=== PATIENT | male | born 1985 | race Caucasian/White ===

== ENCOUNTER 2016-11-20 12:33 | Inpatient (IN) ==
--- NOTE | 2016-11-20 12:41 | Emergency Department Note ---
Disposition Clinical Impression: Anxiety, Suicidal ideation, Marijuana abuse, Hypokalemia, Vomiting Disposition: Admitted As Inpatient Referrals: NO,PCP [Primary Care Provider] - Forms: Work/School Release, ED Satisfaction Letter General Adult HPI - General Chief complaint: ED General Medical Stated complaint: "I dont feel well" Time Seen by Provider: 11/20/16 12:40 Source: patient Limitations: no limitations - History of Present Illness HPI Narrative: 31-year-old male reports to the emergency department, he was brought in by family members from home. Their concerns for potential suicidal ideation. The patient reports someone took his medication away and he is very upset about this. He has a psychiatric history. Apparently there is been significant anxiety and the patient reports he has been vomiting recurrently. There is no history of chest pain shortness of breath or bloody or black material in the emesis. There is no history of headache next of this rash or fever no cough or runny nose or pain or sore throat no troubles walking talking hearing seeing or speaking. There is no history of acute trauma. No convulsions. There is no history of drug overdose or self injurious behavior. He patient states he takes Remeron and Klonopin and Zoloft. He states that he has not had these medications for several days. The patient reports he is also very upset about people accusing him of using heroin. There is no history of somnolence or unarousability. Pain Scale: 0 - Related Data Home Medications Medication Instructions Recorded Confirmed ClonazePAM [Klonopin] 1.5 mg PO BID 11/18/16 11/18/16 Dextroamphetamine/Amphetamine 5 mg PO BID 11/18/16 11/18/16 [Adderall 10 mg Tablet] Mirtazapine [Remeron] 15 mg PO HS 11/18/16 11/18/16 Sertraline [Zoloft] 150 mg PO DAILY 11/18/16 11/18/16 Zolpidem [Ambien] 5 - 10 mg PO HS 11/18/16 11/18/16 Allergies Allergy/AdvReac Type Severity Reaction Status Date / Time No Known Allergies Allergy Verified 11/18/16 19:58 All systems ED: reviewed and negative except as stated. Past Medical History - Past Medical History Medical history: Reports: no medical history Psychiatric history: Reports: anxiety, depression - Social History Smoking Status: Current every day smoker Smokeless Tobacco Status: No Alcohol use: Reports: rarely Drug use: Reports: marijuana, prescription drug abuse Physical Exam - General Limitations: no limitations General appearance: anxious - Head Head exam: atraumatic, normocephalic, normal inspection - Eye Eye exam: Present: normal appearance, PERRL, EOMI. Absent: scleral icterus, conjunctival injection, miosis, mydriasis - ENT ENT exam: normal exam, normal oropharynx, mucous membranes moist, TM's normal bilaterally, normal external ear exam - Neck Neck exam: Present: normal inspection, full ROM, trachea midline. Absent: tenderness - Chest Chest inspection: Present: symmetric chest wall rise. Absent: tenderness - Respiratory Respiratory exam: Present: normal lung sounds bilaterally. Absent: respiratory distress, wheezes, accessory muscle use, prolonged expiratory phase - Cardiovascular Cardiovascular exam: Present: regular rate, normal rhythm, normal heart sounds - Abdominal Exam Abdominal exam: Present: soft, Non-Tender, normal bowel sounds. Absent: tenderness, distention, guarding, rebound, rigidity - Extremities Exam Extremities exam: Present: normal inspection, full ROM, normal capillary refill. Absent: tenderness, pedal edema, joint swelling, calf tenderness - Expanded Upper Extremity Exam Shoulder exam: Present: normal inspection, full ROM Arm exam: Present: normal inspection, full ROM Elbow exam: Present: normal inspection, full ROM Forearm/Wrist exam: Present: normal inspection, full ROM Hand exam: Present: normal inspection, full ROM - Expanded Lower Extremity Exam Hip/Pelvis exam: Present: normal inspection, full ROM Upper leg exam: Present: normal inspection, full ROM Knee exam: Present: normal inspection, full ROM Lower leg exam: Present: normal inspection, full ROM Ankle exam: Present: normal inspection, full ROM Foot/toe exam: Present: normal inspection, full ROM Neurovascular/Tendon exam: Absent: motor deficit, sensory deficit, tendon deficit, extremity cold to touch, pallor - Back Exam Back exam: Present: normal inspection, full ROM. Absent: tenderness, CVA tenderness (R), CVA tenderness (L), vertebral tenderness - Neurological Exam Neurological exam: Present: alert, oriented X3, CN II-XII intact. Absent: motor sensory deficit - Psychiatric Psychiatric exam: Present: normal affect, normal mood - Skin Skin exam: Present: warm, dry, intact, normal color. Absent: rash, cyanosis, diaphoresis, erythema, pallor, mottled Course Vital Signs Temperature 98.1 F 11/20/16 12:35 Pulse Rate 117 11/20/16 12:35 Respiratory Rate 18 11/20/16 12:35 Blood Pressure 127/84 11/20/16 12:35 O2 Sat by Pulse Oximetry 96 11/20/16 12:35 Temperature 98.1 F 11/20/16 12:35 Pulse Rate 117 11/20/16 12:35 Respiratory Rate 18 11/20/16 12:35 Blood Pressure 127/84 11/20/16 12:35 O2 Sat by Pulse Oximetry 96 11/20/16 12:35 Oxygen Delivery Oxygen Delivery Room Air Medical Decision Making - MDM Narrative Medical decision making narrative: The patient is been drinking fluids without difficulty in the ED. He has had no vomiting here. Potassium was ordered. Based on concerns for possible suicidality, I have consult to the hospital psychiatric service who have evaluated the patient and feel the patient would benefit from psychiatric hospitalization. They have asked me to fill out a pink slip which I have done. He patient is currently stable. He appears to have no serious acute medical condition and I do not think he will decompensate in the near term. The patient is pending admission to the psychiatric service. - Lab Data Lab results reviewed: Yes I reviewed the patient's lab results. Result diagrams: 11/20/16 12:55 11/20/16 12:55 Lab Results 11/20/16 11/20/16 11/20/16 Range/Units 12:55 12:55 13:33 WBC 8.8 (4.3-11.1) K/mcL RBC 5.19 (4.19-5.50) M/mcL Hgb 16.0 (12.9-16.9) g/dL Hct 46.8 (37.5-50.1) % MCV 90.2 (83.0-100.0) fL MCH 30.8 (28.0-33.3) pg MCHC 34.2 (31.6-35.5) g/dL RDW 11.9 (11.5-14.5) % Plt Count 271 (140-400) K/mcL MPV 9.7 (9.4-12.4) fL Immature Gran % 0.2 (0-4) % Seg Neutrophils % 80.1 % Lymphocytes % 13.4 % Monocytes % 5.8 % Eosinophils % 0.2 % Basophils % 0.3 % Neutrophils # 7.0 (1.6-8.9) K/mcL Lymphocytes # 1.2 (0.6-4.6) K/mcL Monocytes # 0.5 (0.0-1.3) K/mcL Eosinophils # 0.0 (0.0-0.6) K/mcL Basophils # 0.0 (0.0-0.2) K/mcL Sodium 134 L (136-145) mEq/L Potassium 3.3 L (3.5-4.5) mEq/L Chloride 96 L (98-109) mEq/L Carbon Dioxide 22 (19-29) mEq/L BUN 7 L (8-26) mg/dL Creatinine 0.76 (0.72-1.25) mg/dL Est GFR ( Amer) > 60 (> 60) Est GFR (Non-Af Amer) > 60 (> 60) BUN/Creatinine Ratio 9 (6-26) Glucose 75 (70-99) mg/dL Calculated Osmolality 275 L (280-300) Calcium 9.1 (8.6-10.8) mg/dL Urine Color Yellow (Yellow) Urine Clarity Clear (Clear) Urine pH 6.0 (5.0-8.0) pH Units Ur Specific [place] 1.024 (1.010-1.025) Urine Protein Trace (Neg-Trace) mg/dL Urine Glucose (UA) Normal (Normal) mg/dL Urine Ketones >=160 H (Negative) mg/dL Urine Blood Negative (Negative) Urine Nitrite Negative (Negative) Urine Bilirubin Small H (Negative) Urine Urobilinogen Normal (Normal) mg/dL Ur Leukocyte Esterase Negative (Negative) Urine Microscopic RBC 0-3 (0-3) per hpf Urine Microscopic WBC 0-3 (0-3) per hpf Ur Squamous Epith Cells Many H (None-Few) per lpf Urine Bacteria None Seen (None-Few) per hpf Hyaline Casts None Seen (None-Few) per lpf Salicylates < 5.0 L (15-30) mg/dL Urine Opiates Screen (Frikdi=466) ng/mL Acetaminophen < 1.0 L (10-30) mcg/mL Ur Barbiturates Screen (Tdvsdy=660) ng/mL Ur Phencyclidine Scrn (Cutoff=25) ng/mL Ur Amphetamines Screen (Wyexqz=2579) ng/mL U Benzodiazepines Scrn (Kfzhgl=611) ng/mL Urine Cocaine Screen (Cutoff= 300) ng/mL U Marijuana (THC) Screen (Cutoff = 50) ng/mL Ethyl Alcohol < 10 (0-10) mg/dL 11/20/16 Range/Units 13:33 WBC (4.3-11.1) K/mcL RBC (4.19-5.50) M/mcL Hgb (12.9-16.9) g/dL Hct (37.5-50.1) % MCV (83.0-100.0) fL MCH (28.0-33.3) pg MCHC (31.6-35.5) g/dL RDW (11.5-14.5) % Plt Count (140-400) K/mcL MPV (9.4-12.4) fL Immature Gran % (0-4) % Seg Neutrophils % % Lymphocytes % % Monocytes % % Eosinophils % % Basophils % % Neutrophils # (1.6-8.9) K/mcL Lymphocytes # (0.6-4.6) K/mcL Monocytes # (0.0-1.3) K/mcL Eosinophils # (0.0-0.6) K/mcL Basophils # (0.0-0.2) K/mcL Sodium (136-145) mEq/L Potassium (3.5-4.5) mEq/L Chloride (98-109) mEq/L Carbon Dioxide (19-29) mEq/L BUN (8-26) mg/dL Creatinine (0.72-1.25) mg/dL Est GFR ( Amer) (> 60) Est GFR (Non-Af Amer) (> 60) BUN/Creatinine Ratio (6-26) Glucose (70-99) mg/dL Calculated Osmolality (280-300) Calcium (8.6-10.8) mg/dL Urine Color (Yellow) Urine Clarity (Clear) Urine pH (5.0-8.0) pH Units Ur Specific [place] (1.010-1.025) Urine Protein (Neg-Trace) mg/dL Urine Glucose (UA) (Normal) mg/dL Urine Ketones (Negative) mg/dL Urine Blood (Negative) Urine Nitrite (Negative) Urine Bilirubin (Negative) Urine Urobilinogen (Normal) mg/dL Ur Leukocyte Esterase (Negative) Urine Microscopic RBC (0-3) per hpf Urine Microscopic WBC (0-3) per hpf Ur Squamous Epith Cells (None-Few) per lpf Urine Bacteria (None-Few) per hpf Hyaline Casts (None-Few) per lpf Salicylates (15-30) mg/dL Urine Opiates Screen Negative (Dlskwc=532) ng/mL Acetaminophen (10-30) mcg/mL Ur Barbiturates Screen Negative (Rsxbly=801) ng/mL Ur Phencyclidine Scrn Negative (Cutoff=25) ng/mL Ur Amphetamines Screen Negative (Yqzqhp=9840) ng/mL U Benzodiazepines Scrn Positive H (Chosvu=535) ng/mL Urine Cocaine Screen Negative (Cutoff= 300) ng/mL U Marijuana (THC) Screen Positive H (Cutoff = 50) ng/mL Ethyl Alcohol (0-10) mg/dL
[2016-11-20 13:06] LABS: Basophils % 0.3 %; Eosinophils % 0.2 %; Hematocrit 46.8 % (37.5-50.1); Immature Granulocytes % 0.2 % (0-4); Lymphocytes # 1.2 K/mcL (0.6-4.6); Lymphocytes % 13.4 %; Mean Corpuscular HGB Conc 34.2 g/dL (31.6-35.5); Mean Corpuscular Hemoglobin 30.8 pg (28.0-33.3); Mean Corpuscular Volume 90.2 fL (83.0-100.0); Mean Platelet Volume 9.7 fL (9.4-12.4); Monocytes # 0.5 K/mcL (0.0-1.3); Monocytes % 5.8 %; Platelet Count 271 K/mcL (140-400); Red Blood Count 5.19 M/mcL (4.19-5.50); Red Cell Distribution Width 11.9 % (11.5-14.5); Segmented Neutrophils % 80.1 %
[2016-11-20] MEDS ORDERED: *HR* LORazepam 1 MG TABLET PO ONE (13:14)
[2016-11-20 13:20] LABS: BUN/Creatinine Ratio 9 (6-26); Blood Urea Nitrogen 7 mg/dL (8-26); Calcium 9.1 mg/dL (8.6-10.8); Carbon Dioxide 22 mEq/L (19-29); Chloride 96 mEq/L (98-109); Glucose 75 mg/dL (70-99); Osmolality,Calculated 275 (280-300); Potassium 3.3 mEq/L (3.5-4.5); Sodium 134 mEq/L (136-145); eGFR For African Americans > 60 (> 60); eGFR For Non-African Americans > 60 (> 60)
[2016-11-20 13:25] LABS: Acetaminophen < 1.0 mcg/mL (10-30); Ethanol < 10 mg/dL (0-10); Salicylate < 5.0 mg/dL (15-30)
[2016-11-20 13:40] LABS: Bilirubin,Urine Small (Negative); Blood,Urine Negative (Negative); Clarity,Urine Clear (Clear); Color,Urine Yellow (Yellow); Glucose,Urine (UA) Normal (Normal); Ketones,Urine >=160 mg/dL (Negative); Leukocyte Esterase,Urine Negative (Negative); Nitrite,Urine Negative (Negative); Protein,Urine Trace mg/dL (Neg-Trace); Specific Gravity,Urine 1.024 (1.010-1.025); Urobilinogen,Urine Normal (Normal)
[2016-11-20 13:42] LABS: Bacteria,Urine None Seen per hpf (None-Few); Hyaline Casts,Urine None Seen per lpf (None-Few); RBC,Urine 0-3 per hpf (0-3); Squamous Epithelial Cell,Urine Many per lpf (None-Few); WBC,Urine 0-3 per hpf (0-3)
[2016-11-20 13:46] LABS: Amphetamine Screen,Urine Negative ng/mL (Cutoff=1000); Barbiturate Screen,Urine Negative ng/mL (Cutoff=200); Benzodiazepines Screen,Urine Positive ng/mL (Cutoff=200); Cannabinoid Screen,Urine Positive ng/mL (Cutoff = 50); Cocaine Screen,Urine Negative ng/mL (Cutoff= 300); Opiate Screen,Urine Negative ng/mL (Cutoff=300); Phencyclidine Screen,Urine Negative ng/mL (Cutoff=25)
[2016-11-20] MEDS ORDERED: *HR* LORazepam 2 MG/ML VIAL IM PRN (16:29)
[2016-11-20] MEDS ORDERED: MOM Conc 10 ML UD.LIQ PO PRN (16:29)
[2016-11-20] MEDS ORDERED: *HR* LORazepam 1 MG TABLET PO PRN (16:29)
[2016-11-20] MEDS ORDERED: Haloperidol Lactate 5 MG/ML VIAL IM PRN (16:29)
[2016-11-20] MEDS: Nicotine 21 MG PATCH.TD24 TD SCH (19:25)
[2016-11-20] MEDS: traZODone 50 MG TABLET PO PRN ×2 (20:53→22:19)
[2016-11-20] MEDS: hydrOXYzine pamoate 25 MG CAPSULE PO PRN (22:19)
[2016-11-21] MEDS: Nicotine 21 MG PATCH.TD24 TD SCH (08:55)
--- NOTE | 2016-11-21 13:50 | Psychiatry History & Physical ---
Date of Encounter: 11/21/16 Time of Encounter: 13:48 History of Present Illness Patient Stated Chief Complaint: recent overdose Medicare Admission Attestation: For traditional Medicare patients the provided hospital inpatient services are reasonable and necessary and in the case of services not specified as inpatient -only under 42 CFR 419.22 (n), that they are appropriately provided as inpatient services in accordance 42 CFR 412.3. For Critical Access Hospital the patient may reasonably be expected to be discharged or transferred to a hospital within 96 hours after admission to the Critical Access Hospital. History of Present Illness: Mr. Medina is a 31 year old male Past Med Surg Social Fam HX - Past Medical History Medical history: no medical history - Past Psychiatric History Psychiatric history: Reports: anxiety, depression Family psychiatric history: Yes Family History of Suicide: Completed Family Suicide History Details: brother overdosed - Past Surgical History Surgical History: no surgical history - Social History Smoking Status: Current every day smoker Smokeless Tobacco Status: No Alcohol use: rarely Drug use: marijuana, prescription drug abuse Medications & Allergies ClonazePAM [Klonopin] 1.5 mg PO BID 11/18/16 [History] Dextroamphetamine/Amphetamine [Adderall 10 mg Tablet] 5 mg PO BID 11/18/16 [ History] Mirtazapine [Remeron] 15 mg PO HS 11/18/16 [History] Sertraline [Zoloft] 150 mg PO DAILY 11/18/16 [History] Zolpidem [Ambien] 5 - 10 mg PO HS 11/18/16 [History] Allergies No Known Allergies Allergy (Verified 11/18/16 19:58) Review of Systems Constitutional: Denies: fever, chills, weakness, weight change Eyes: Denies: eye pain, vision change Ears, Nose, Throat: Denies: ear pain, throat pain, dental pain, hearing loss, congestion Cardiovascular: Denies: chest pain, palpitations, dyspnea on exertion Respiratory: Denies: cough, dyspnea, wheezes Gastrointestinal: Denies: abdominal pain, nausea, vomiting, diarrhea, constipation Genitourinary male: Denies: urgency, dysuria, frequency, genital lesions Genitourinary female: Denies: urgency, dysuria, frequency, abnormal menses, dyspareunia Musculoskeletal: Denies: joint swelling, joint pain Integumentary: Denies: rash, lesions, pruritus Neurological: Denies: headache, weakness, numbness, memory loss Endocrine: Denies: fatigue, heat or cold intolerance Hematologic/Lymphatic: Denies: easy bruising, lymphadenopathy Allergic/Immunologic: Denies: urticaria, itchy eyes Mental Status Exam Patient orientation: Yes Person, Yes Time, Yes Place Level of alertness: Alert Patient appearance: Disheveled Behavior: nervous, restless Psychomotor activity: Agitated Eye contact: Maintains Eye Contact Mood description: Depressed, Anxious Affect description: congruent with mood, full range Speech pattern: Normal rate, Normal rhythm, Normal tone Speech volume: Normal Thought process: Linear, Goal Oriented Thought content: Yes Suicidal ideation, Yes Grandiose delusion Perceptual disturbances: No Auditory hallucinations, No Visual hallucinations Attention span: Capable of Focused Attention Memory description: Grossly Intact Patient reliability: Questionable Historian Intelligence estimate: Average Judgment: Limited Insight: Minimal Exam - HEENT Head exam IM: Present: atraumatic Eye exam IM: Present: normal appearance ENT exam IM: Present: mucous membranes moist - Neurological Neurological exam IM: Present: alert, oriented X3, no focal deficits - Respiratory Respiratory exam IM: Present: CTAB - GI/Abdominal GI/Abdominal exam IM: Present: normal bowel sounds - Extremities Extremities exam IM: Present: full ROM - Skin Skin exam IM: Present: intact Results - Vital Signs Vital signs: Temp Pulse Resp BP Pulse Ox 99.8 F H 101 18 124/96 97 11/21/16 09:00 11/21/16 09:00 11/21/16 09:00 11/21/16 09:00 11/20/16 16:00 - Labs Labs: Laboratory Last Values WBC 8.8 K/mcL (4.3-11.1) 11/20/16 12:55 RBC 5.19 M/mcL (4.19-5.50) 11/20/16 12:55 Hgb 16.0 g/dL (12.9-16.9) 11/20/16 12:55 Hct 46.8 % (37.5-50.1) 11/20/16 12:55 MCV 90.2 fL (83.0-100.0) 11/20/16 12:55 MCH 30.8 pg (28.0-33.3) 11/20/16 12:55 MCHC 34.2 g/dL (31.6-35.5) 11/20/16 12:55 RDW 11.9 % (11.5-14.5) 11/20/16 12:55 Plt Count 271 K/mcL (140-400) 11/20/16 12:55 MPV 9.7 fL (9.4-12.4) 11/20/16 12:55 Immature Gran % 0.2 % (0-4) 11/20/16 12:55 Seg Neutrophils % 80.1 % 11/20/16 12:55 Lymphocytes % 13.4 % 11/20/16 12:55 Monocytes % 5.8 % 11/20/16 12:55 Eosinophils % 0.2 % 11/20/16 12:55 Basophils % 0.3 % 11/20/16 12:55 Neutrophils # 7.0 K/mcL (1.6-8.9) 11/20/16 12:55 Lymphocytes # 1.2 K/mcL (0.6-4.6) 11/20/16 12:55 Monocytes # 0.5 K/mcL (0.0-1.3) 11/20/16 12:55 Eosinophils # 0.0 K/mcL (0.0-0.6) 11/20/16 12:55 Basophils # 0.0 K/mcL (0.0-0.2) 11/20/16 12:55 Sodium 134 mEq/L (136-145) L 11/20/16 12:55 Potassium 3.3 mEq/L (3.5-4.5) L 11/20/16 12:55 Chloride 96 mEq/L (98-109) L 11/20/16 12:55 Carbon Dioxide 22 mEq/L (19-29) 11/20/16 12:55 BUN 7 mg/dL (8-26) L 11/20/16 12:55 Creatinine 0.76 mg/dL (0.72-1.25) 11/20/16 12:55 Est GFR ( Amer) > 60 (> 60) 11/20/16 12:55 Est GFR (Non-Af Amer) > 60 (> 60) 11/20/16 12:55 BUN/Creatinine Ratio 9 (6-26) 11/20/16 12:55 Glucose 75 mg/dL (70-99) 11/20/16 12:55 Calculated Osmolality 275 (280-300) L 11/20/16 12:55 Calcium 9.1 mg/dL (8.6-10.8) 11/20/16 12:55 Urine Color Yellow (Yellow) 11/20/16 13:33 Urine Clarity Clear (Clear) 11/20/16 13:33 Urine pH 6.0 pH Units (5.0-8.0) 11/20/16 13:33 Ur Specific [place] 1.024 (1.010-1.025) 11/20/16 13:33 Urine Protein Trace mg/dL (Neg-Trace) 11/20/16 13:33 Urine Glucose (UA) Normal mg/dL (Normal) 11/20/16 13:33 Urine Ketones >=160 mg/dL (Negative) H 11/20/16 13:33 Urine Blood Negative (Negative) 11/20/16 13:33 Urine Nitrite Negative (Negative) 11/20/16 13:33 Urine Bilirubin Small (Negative) H 11/20/16 13:33 Urine Urobilinogen Normal mg/dL (Normal) 11/20/16 13:33 Ur Leukocyte Esterase Negative (Negative) 11/20/16 13:33 Urine Microscopic RBC 0-3 per hpf (0-3) 11/20/16 13:33 Urine Microscopic WBC 0-3 per hpf (0-3) 11/20/16 13:33 Ur Squamous Epith Cells Many per lpf (None-Few) H 11/20/16 13:33 Urine Bacteria None Seen per hpf (None-Few) 11/20/16 13:33 Hyaline Casts None Seen per lpf (None-Few) 11/20/16 13:33 Salicylates < 5.0 mg/dL (15-30) L 11/20/16 12:55 Urine Opiates Screen Negative ng/mL (Mtfaub=802) 11/20/16 13:33 Acetaminophen < 1.0 mcg/mL (10-30) L 11/20/16 12:55 Ur Barbiturates Screen Negative ng/mL (Zwbvir=374) 11/20/16 13:33 Ur Phencyclidine Scrn Negative ng/mL (Cutoff=25) 11/20/16 13:33 Ur Amphetamines Screen Negative ng/mL (Anikcq=7477) 11/20/16 13:33 U Benzodiazepines Scrn Positive ng/mL (Yvvjbp=521) H 11/20/16 13:33 Urine Cocaine Screen Negative ng/mL (Cutoff= 300) 11/20/16 13:33 U Marijuana (THC) Screen Positive ng/mL (Cutoff = 50) H 11/20/16 13:33 Ethyl Alcohol < 10 mg/dL (0-10) 11/20/16 12:55 Assessment and Plan (1) Suicidal ideation Current visit: Yes Status: Acute Plan: Admit inpatient for safety and stabilization, Close observation, Suicide Precautions per unit protocol, Encourage participation in unit milieu, Group Therapy, Monitor sleep, Monitor appetite, Secure weapons Risks, benefits, side effects, alternatives discussed w/pt: Yes Patient agreeable to treatment : Yes Plans for Post Hospital Care: Home Estimated Length of Stay (Days): 4
[2016-11-21] MEDS ORDERED: clonazePAM 0.5 MG TABLET PO ONE (14:56)
[2016-11-21] MEDS ORDERED: Nicotine 21 MG PATCH.TD24 TD ONE (16:30)
[2016-11-21] MEDS: Mirtazapine 15 MG TABLET PO SCH (20:32)
[2016-11-21] MEDS: Mag Hydrox/Al Hydrox/Simeth 30 ML UDC PO PRN (20:32)
[2016-11-21] MEDS: clonazePAM 0.5 MG TABLET PO SCH (20:32)
[2016-11-22] MEDS: clonazePAM 0.5 MG TABLET PO SCH ×2 (08:31→20:49)
[2016-11-22] MEDS: Nicotine 21 MG PATCH.TD24 TD SCH (08:31)
--- NOTE | 2016-11-22 19:12 | Psychiatry Progress Note ---
Date of Encounter: 11/22/16 Time of Encounter: 19:07 Subjective Interval history: Started on home meds of Zoloft, Klonopin, Remeron and Ambien. Looks better today. Less twitchy and restless. Still has an odd presentation but improving. 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 He is unsure what to do with his talent. Wanting to know why he has r/o Delusional Disorder as a diagnosis. Worried others might think his talent is a delusion. Wanted to ensure this rfp writer that this was not the case. Would likely benefit from an antipsychotic. Self pay. According to staff Zyprexa would be a good option as he can get this one cheaply. Would also be a good choice as client is thin and almost malnourished in appearance. Also has depressive symptoms that may improve with Zyprexa. Wants to go home but agreeable to starting new med and monitoring for benefit. Review of Systems Constitutional: Denies: fever, chills, weakness, weight change Eyes: Denies: eye pain, vision change Ears, Nose, Throat: Denies: ear pain, throat pain, dental pain, hearing loss, congestion Cardiovascular: Denies: chest pain, palpitations, dyspnea on exertion Respiratory: Denies: cough, dyspnea, wheezes Gastrointestinal: Denies: abdominal pain, nausea, vomiting, diarrhea, constipation Musculoskeletal: Denies: joint swelling, joint pain Neurological: Denies: headache, weakness, numbness, memory loss Objective: Exam Patient orientation: Yes Person, Yes Time, Yes Place Level of alertness: Alert Patient appearance: Appropriate, Disheveled Behavior: nervous, restless Psychomotor activity: Increased Eye contact: Maintains Eye Contact Mood description: Anxious Affect description: congruent with mood Speech pattern: Normal rate, Normal rhythm, Normal tone Speech volume: Normal Thought process: Intact, Goal Oriented Thought content: No Suicidal ideation, No Homicidal ideation, Yes Overt delusions Perceptual disturbances: No Auditory hallucinations, No Visual hallucinations Judgment: Limited Insight: Minimal Results - Vital Signs Vital Signs: Temp Pulse Resp BP Pulse Ox 97.6 F 93 16 120/89 97 11/22/16 09:00 11/22/16 09:00 11/22/16 09:00 11/22/16 09:00 11/20/16 16:00 Assessment and Plan (1) Suicidal ideation Current visit: Yes Status: Acute Plan: Continue hospitalization, Close observation, Suicide Precautions per unit protocol, Encourage participation in unit milieu, Group Therapy, Monitor sleep, Monitor appetite, Secure weapons Risks, benefits, side effects, alternatives discussed w/pt: Yes Patient agreeable to treatment: Yes Consult Discharge Plan - Plan Referrals: Rachelle Kilpatrick [Outside] - 12/01/16 1:00 pm (The above appointment is with Chastity Sweeney for counseling. When you come to your first appointment, you will have an orientation to the agency and you will meet with a counselor. Please bring the following with you to your first visit to the clinic: 1) proof of household income (two consecutive pay stubs, social security award letter, bank statement, statement letter from [facility], child support statement, IRS 1040 or W2 form, or a statement from the person who financially supports you stating they help provide for your basic needs), 2) proof of residency (drivers license, a piece of mail showing your address, a statement from person you live with verifying you live at their address), 3) your social security card, 4) photo ID, 5) your insurance card (if you have commercial insurance you must call to obtain a prior authorization number before you arrive to your first appointment) and 6) if you do not have insurance but have applied for Medicaid, please bring verification you have applied. This is the first available appointment. You may contact the office regularly to check for cancellations that may allow you to be seen sooner. ) Donato Goddard MD [Partnered Physician] - 12/02/16 2:00 pm (The above appointment is with Dr. Goddard.)
[2016-11-22] MEDS: Mirtazapine 15 MG TABLET PO SCH (20:49)
[2016-11-22] MEDS: Ibuprofen 400 MG TABLET PO PRN (20:50)
[2016-11-22] MEDS ORDERED: OLANZapine 5 MG TAB.RAPDIS PO SCH (21:00)
[2016-11-22] MEDS: Mag Hydrox/Al Hydrox/Simeth 30 ML UDC PO PRN (22:17)
[2016-11-23] MEDS: Nicotine 21 MG PATCH.TD24 TD SCH (08:51)
[2016-11-23] MEDS: clonazePAM 0.5 MG TABLET PO SCH ×2 (08:52→21:54)
--- NOTE | 2016-11-23 13:51 | Psychiatry Progress Note ---
Date of Encounter: 11/23/16 Time of Encounter: 13:41 Subjective Interval history: Did fine with the Zyprexa last night. Reported he slept well. Still feeling tired this morning but thinks that was due to staff mistakenly waking him at 6am when they wanted his neighbor. Wants to go home but still presenting as rather odd. Did not discuss his singing talent today which is a positive but likely still has this fixed belief. Zyprexa will hopefully help make these thoughts less intense so that he can focus on more helpful goals. Continues to look twitchy and has trouble maintaining eye contact at times. Will plan to increase Zyprexa dose again tonight. Denies SI/HI so if he tolerates the higher dose may be able to look at discharge tomorrow. He is agreeable to counseling which will benefit him in the long run. Need to touch base with family and determine their comfort level with having him back in the house. Felix admits he has not been treating them well but feels comfortable returning home and believes his family will be comfortable as well. He is very bright. He was home schooled but his parents could not assist him much past the 6th grade. Passed the GED on his own and reportedly graduated from [employer] with honors. May be on the Autism spectrum. Review of Systems Constitutional: Denies: fever, chills, weakness, weight change Eyes: Denies: eye pain, vision change Ears, Nose, Throat: Denies: ear pain, throat pain, dental pain, hearing loss, congestion Cardiovascular: Denies: chest pain, palpitations, dyspnea on exertion Respiratory: Denies: cough, dyspnea, wheezes Gastrointestinal: Denies: abdominal pain, nausea, vomiting, diarrhea, constipation Musculoskeletal: Denies: joint swelling, joint pain Neurological: Denies: headache, weakness, numbness, memory loss Objective: Exam Patient orientation: Yes Person, Yes Time, Yes Place Level of alertness: Alert Patient appearance: Unkempt Behavior: anxious Psychomotor activity: Increased Eye contact: Diverts Contact Mood description: Euthymic/stable Affect description: anxious Speech pattern: Normal rate, Normal rhythm, Normal tone Speech volume: Normal Thought process: Linear, Goal Oriented Thought content: No Suicidal ideation, No Homicidal ideation, No Overt delusions Perceptual disturbances: No Auditory hallucinations, No Visual hallucinations Judgment: Limited Insight: Minimal Results - Vital Signs Vital Signs: Temp Pulse Resp BP Pulse Ox 98.1 F 87 16 124/93 97 11/23/16 09:00 11/23/16 09:00 11/23/16 09:00 11/23/16 09:00 11/20/16 16:00 Assessment and Plan (1) Suicidal ideation Current visit: Yes Status: Acute Plan: Continue hospitalization, Close observation, Suicide Precautions per unit protocol, Encourage participation in unit milieu, Group Therapy, Monitor sleep, Monitor appetite, Secure weapons Risks, benefits, side effects, alternatives discussed w/pt: Yes Patient agreeable to treatment: Yes Consult Discharge Plan - Plan Referrals: [facility] [Outside] - 12/01/16 1:00 pm (The above appointment is with Chastity Sweeney for counseling. When you come to your first appointment, you will have an orientation to the agency and you will meet with a counselor. Please bring the following with you to your first visit to the clinic: 1) proof of household income (two consecutive pay stubs, social security award letter, bank statement, statement letter from [facility], child support statement, IRS 1040 or W2 form, or a statement from the person who financially supports you stating they help provide for your basic needs), 2) proof of residency (drivers license, a piece of mail showing your address, a statement from person you live with verifying you live at their address), 3) your social security card, 4) photo ID, 5) your insurance card (if you have commercial insurance you must call to obtain a prior authorization number before you arrive to your first appointment) and 6) if you do not have insurance but have applied for Medicaid, please bring verification you have applied. This is the first available appointment. You may contact the office regularly to check for cancellations that may allow you to be seen sooner. ) Donato Goddard MD [Partnered Physician] - 12/02/16 2:00 pm (The above appointment is with Dr. Goddard.)
[2016-11-23] MEDS ORDERED: OLANZapine 10 MG TAB.RAPDIS PO SCH (21:00)
[2016-11-23] MEDS: Mirtazapine 15 MG TABLET PO SCH (21:53)
[2016-11-23] MEDS: Mag Hydrox/Al Hydrox/Simeth 30 ML UDC PO PRN (21:53)
[2016-11-23] MEDS: hydrOXYzine pamoate 25 MG CAPSULE PO PRN (21:54)
[2016-11-23] MEDS: Ibuprofen 400 MG TABLET PO PRN (21:54)
[2016-11-23] MEDS: traZODone 50 MG TABLET PO PRN (21:54)
[2016-11-24] MEDS: clonazePAM 0.5 MG TABLET PO SCH (09:02)
[2016-11-24] MEDS: Nicotine 21 MG PATCH.TD24 TD SCH (09:03)
[2016-11-24 09:34] VITALS: BP 141/84
--- NOTE | 2016-11-24 15:31 | Discharge Summary ---
Date of Encounter: 11/24/16 Time of Encounter: 15:24 Diagnosis - Discharge Diagnosis (1) Suicidal ideation Status: Acute Medications - Discharge Medications Prescriptions: clonazePAM [Klonopin] 1.5 mg PO BID #180 tablet hydrOXYzine pamoate [HydrOXYzine Pamoate] 25 mg PO TID PRN #90 capsule PRN Reason: Anxiety Mirtazapine [Remeron] 15 mg PO HS #30 tablet OLANZapine [Zyprexa Zydis] 10 mg PO HS #30 tab.rapdis Sertraline [Zoloft] 150 mg PO DAILY #45 tablet Mirtazapine [Remeron] 15 mg PO HS #30 tablet 11/24/16 [Rx] OLANZapine [Zyprexa Zydis] 10 mg PO HS #30 tab.rapdis 11/24/16 [Rx] Sertraline [Zoloft] 150 mg PO DAILY #45 tablet 11/24/16 [Rx] Zolpidem [Ambien] 10 mg PO HS PRN #0 tablet 11/24/16 [Rx] clonazePAM [Klonopin] 1.5 mg PO BID #180 tablet 11/24/16 [Rx] hydrOXYzine pamoate [HydrOXYzine Pamoate] 25 mg PO TID PRN #90 capsule 11/24/16 [Rx] Allergies No Known Allergies Allergy (Verified 11/18/16 19:58) Provider Date of admission: 11/20/16 16:16 Primary care physician: PCP NO Discharging clinician: Sonia Carpenter Assessment and Plan - Patient/Caregiver Discharge Instructions Activity: resume usual activities as tolerated Diet: regular diet - Follow up Plan Follow up with: Rachelle Kilpatrick [Outside] - 12/01/16 1:00 pm (The above appointment is with Chastity Sweeney for counseling. When you come to your first appointment, you will have an orientation to the agency and you will meet with a counselor. Please bring the following with you to your first visit to the clinic: 1) proof of household income (two consecutive pay stubs, social security award letter, bank statement, statement letter from [facility], child support statement, IRS 1040 or W2 form, or a statement from the person who financially supports you stating they help provide for your basic needs), 2) proof of residency (drivers license, a piece of mail showing your address, a statement from person you live with verifying you live at their address), 3) your social security card, 4) photo ID, 5) your insurance card (if you have commercial insurance you must call to obtain a prior authorization number before you arrive to your first appointment) and 6) if you do not have insurance but have applied for Medicaid, please bring verification you have applied. This is the first available appointment. You may contact the office regularly to check for cancellations that may allow you to be seen sooner. ) Donato Goddard MD [Partnered Physician] - 12/02/16 2:00 pm (The above appointment is with Dr. Goddard.) Functional capacity at discharge: independent ambulation Overall status at discharge: Stable Disposition: Home, Self-Care Hospital Course Hospital course: Mr. Medina is a 31 year old male who was initially admitted secondary to endorsing SI. He denied suicidal and homicidal ideation, intent, or plan throughout his inpatient stay. He did admit to some depression and anxiety and he was agreeable to adjustments in his medications. He had an odd presentation and initially he was anxious, twitchy, and avoiding all eye contact. With the changes in medications he was able to sleep and his hygiene improved. At the time of discharge he reported feeling much better and he was more able to engage in conversation. At the time of admission he was reporting he had one of the best singing voices in the world. Per reports he has no singing talent. Delusional Disorder was listed as a rule out diagnosis. At the time of discharge he was no longer discussing his singing unless asked and when asked he was no longer sure if he should pursue a singing career or not. Although the belief was likely still present he was less fixated on it. Substance abuse was a factor but Felix minimized or denied use. His brother of an opiate overdose last year. Felix's parents were worried that Felix might be addicted to opiates but Felix denied this and indicated his most recent tox screen was negative for opiates. Felix did admit to smoking THC but was not interested in stopping. At the time of discharge he was reporting his mood was good and he was denying all suicidal and homicidal ideation, plan, or intent. He was agreeable to outpatient linkage and follow-up. - Time Spent with Patient Total time spent providing and/or coordinating discharge services: Quality - Multiple Antipsychotics Patient discharged on 2 or more antipsychotic medications: No Procedures - Procedures Procedures: Medication Management, Crisis Stabilization, Supportive Therapy, Group Therapy Mental Status Exam - Mental Status Exam Patient orientation: Yes Person, Yes Time, Yes Place Level of alertness: Alert Patient appearance: Appropriate, Thin Behavior: anxious Psychomotor activity: Increased Eye contact: Maintains Eye Contact Mood description: Euthymic/stable, Anxious Affect description: congruent with mood Speech pattern: Normal rate Speech Volume: Normal Thought process: Linear, Goal Oriented Thought Content: No Suicidal ideation, No Homicidal ideation, Yes Overt delusions Perceptual Disturbances: No Auditory hallucinations, No Visual hallucinations Judgment: Limited Insight: Minimal
== END 2016-11-24 16:45 | disposition home or self-care (01) | DRG 754 ==
LOC: EMEROO 12:33 → 1ANU 16:16 → SUATTDRO 16:16 → 1ANU 17:19
PROVIDERS: ADMIT Psychiatry & Neurology Psychiatry; ATTEND Psychiatry & Neurology Psychiatry

== ENCOUNTER 2018-10-24 11:21 | Inpatient (IN) ==
--- NOTE | 2018-10-24 12:16 | Emergency Department Note ---
Disposition Clinical Impression: Acute psychosis, Suicidal ideation Disposition: Admitted As Inpatient Condition: Fair Referrals: NONE,PCP [Primary Care Provider] - Forms: ED Satisfaction Letter Time of Disposition: 14:48 General Adult HPI - General Chief complaint: ED Psychiatric Symptoms Stated complaint: SI Time Seen by Provider: 10/24/18 11:29 Source: patient Limitations: no limitations Nursing Notes Reviewed: Yes Vital Signs Reviewed: Yes - History of Present Illness HPI Narrative: Patient presents to the ED with a chief complaint of suicidal thoughts. Patient plans to hang himself. States he has had a prior attempt in the past. Patient has a history of anxiety depression and a mood disorder. States he is on multiple medications that he is compliant with. He is brought in by a friend who he requested to bring him. He denies any physical complaints. Pain Scale: 0 - Related Data Previous Rx's Medication Instructions Recorded Mirtazapine [Remeron] 15 mg PO HS #30 tablet 11/24/16 OLANZapine [Zyprexa Zydis] 10 mg PO HS #30 tab.rapdis 11/24/16 Sertraline [Zoloft] 150 mg PO DAILY #45 tablet 11/24/16 Zolpidem [Ambien] 10 mg PO HS PRN #0 tablet 11/24/16 clonazePAM [Klonopin] 1.5 mg PO BID #180 tablet 11/24/16 hydrOXYzine pamoate [HydrOXYzine 25 mg PO TID PRN #90 capsule 11/24/16 Pamoate] Allergies Allergy/AdvReac Type Severity Reaction Status Date / Time No Known Allergies Allergy Verified 11/18/16 19:58 All systems ED: reviewed and negative except as stated. Constitutional: Denies: fever Cardiovascular: Denies: chest pain Gastrointestinal: Denies: abdominal pain Past Medical History - Past Medical History Attestation: Yes The following information was validated with the patient. Source: patient Medical history: Reports: no medical history Surgical history: Reports: no surgical history Psychiatric history: Reports: anxiety, depression - Social History Smoking Status: Current every day smoker Smokeless Tobacco Status: No Alcohol use: Reports: none Drug use: Reports: opiates, marijuana, methamphetamine, prescription drug abuse, other Physical Exam Patient's awake and alert sitting up in bed in no distress. He is calm and cooperative. - General General appearance: alert - Head Head exam: atraumatic, normocephalic - Eye Eye exam: Present: normal appearance - ENT ENT exam: normal exam, normal oropharynx - Neck Neck exam: Present: normal inspection - Chest Chest inspection: Present: normal inspection - Respiratory Respiratory exam: Present: normal lung sounds bilaterally. Absent: respiratory distress - Cardiovascular Cardiovascular exam: Present: regular rate, normal rhythm, normal heart sounds - Abdominal Exam Abdominal exam: Present: soft, Non-Tender - Neurological Exam Neurological exam: Present: alert, oriented X3 - Psychiatric Psychiatric exam: Present: normal affect. Absent: agitated, anxious - Skin Skin exam: Present: warm, dry Course Course Narrative: Patient, cooperative. Medical clearance and evaluation by Kris Magallanes slip on chart. - Reevaluation(s) Reevaluation #1: Patient has been evaluated and will be admitted to [facility]. Time: 14:48 Vital Signs Temperature 98.9 F 10/24/18 11:24 Pulse Rate 122 10/24/18 11:24 Respiratory Rate 18 10/24/18 11:24 Blood Pressure 134/88 10/24/18 11:24 O2 Sat by Pulse Oximetry 98 10/24/18 11:24 Temperature 98.9 F 10/24/18 11:59 Pulse Rate 82 10/24/18 14:31 Respiratory Rate 16 10/24/18 14:31 Blood Pressure 109/70 10/24/18 14:31 O2 Sat by Pulse Oximetry 98 10/24/18 11:59 Oxygen Delivery Oxygen Delivery Room Air Medical Decision Making - Lab Data Result diagrams: 10/24/18 12:21 10/24/18 12:21 Lab Results 10/24/18 10/24/18 10/24/18 Range/Units 12:03 12:11 12:21 WBC 5.7 (4.3-11.1) K/mcL RBC 5.43 (4.19-5.50) M/mcL Hgb 15.6 (12.9-16.9) g/dL Hct 46.4 (37.5-50.1) % MCV 85.5 (83.0-100.0) fL MCH 28.7 (28.0-33.3) pg MCHC 33.6 (31.6-35.5) g/dL RDW 14.5 (11.5-14.5) % Plt Count 188 (140-400) K/mcL MPV 9.2 L (9.4-12.4) fL Immature Gran % 0.4 (0-4) % Seg Neutrophils % 51.9 % Lymphocytes % 36.1 % Monocytes % 9.3 % Eosinophils % 1.1 % Basophils % 1.2 % Neutrophils # 3.0 (1.6-8.9) K/mcL Lymphocytes # 2.1 (0.6-4.6) K/mcL Monocytes # 0.5 (0.0-1.3) K/mcL Eosinophils # 0.1 (0.0-0.6) K/mcL Basophils # 0.1 (0.0-0.2) K/mcL Sodium (136-145) mEq/L Potassium (3.5-5.1) mEq/L Chloride (98-107) mEq/L Carbon Dioxide (23-29) mEq/L BUN (6-20) mg/dL Creatinine (0.70-1.30) mg/dL Est GFR ( Amer) (> 60) Est GFR (Non-Af Amer) (> 60) BUN/Creatinine Ratio (6-26) Glucose (70-105) mg/dL Calculated Osmolality (280-300) Calcium (8.6-10.3) mg/dL Urine Color Yellow (Yellow) Urine Clarity Clear (Clear) Urine pH 6.5 (5.0-8.0) pH Units Ur Specific [place] 1.007 L (1.010-1.025) Urine Protein Negative (Neg-Trace) mg/dL Urine Glucose (UA) Normal (Normal) mg/dL Urine Ketones Negative (Negative) mg/dL Urine Blood Negative (Negative) Urine Nitrite Negative (Negative) Urine Bilirubin Negative (Negative) Urine Urobilinogen Normal (Normal) mg/dL Ur Leukocyte Esterase Negative (Negative) Salicylates (15.0-30.0) mg/dL Urine Opiates Screen Negative (Tuhefn=714) ng/mL Acetaminophen (10-20) mcg/mL Ur Barbiturates Screen Negative (Oxozeo=785) ng/mL Ur Phencyclidine Scrn Negative (Cutoff=25) ng/mL Ur Amphetamines Screen Negative (Zcekzz=6304) ng/mL U Benzodiazepines Scrn Negative (Yhaxhc=164) ng/mL Urine Cocaine Screen Negative (Cutoff= 300) ng/mL U Marijuana (THC) Screen Negative (Cutoff = 50) ng/mL Ur Drug Screen Interp See Below Ethyl Alcohol (Less than 10) mg/dL 10/24/18 Range/Units 12:21 WBC (4.3-11.1) K/mcL RBC (4.19-5.50) M/mcL Hgb (12.9-16.9) g/dL Hct (37.5-50.1) % MCV (83.0-100.0) fL MCH (28.0-33.3) pg MCHC (31.6-35.5) g/dL RDW (11.5-14.5) % Plt Count (140-400) K/mcL MPV (9.4-12.4) fL Immature Gran % (0-4) % Seg Neutrophils % % Lymphocytes % % Monocytes % % Eosinophils % % Basophils % % Neutrophils # (1.6-8.9) K/mcL Lymphocytes # (0.6-4.6) K/mcL Monocytes # (0.0-1.3) K/mcL Eosinophils # (0.0-0.6) K/mcL Basophils # (0.0-0.2) K/mcL Sodium 136 (136-145) mEq/L Potassium 4.3 (3.5-5.1) mEq/L Chloride 105 (98-107) mEq/L Carbon Dioxide 25 (23-29) mEq/L BUN 13 (6-20) mg/dL Creatinine 0.77 (0.70-1.30) mg/dL Est GFR ( Amer) > 60 (> 60) Est GFR (Non-Af Amer) > 60 (> 60) BUN/Creatinine Ratio 17 (6-26) Glucose 84 (70-105) mg/dL Calculated Osmolality 281 (280-300) Calcium 9.0 (8.6-10.3) mg/dL Urine Color (Yellow) Urine Clarity (Clear) Urine pH (5.0-8.0) pH Units Ur Specific [place] (1.010-1.025) Urine Protein (Neg-Trace) mg/dL Urine Glucose (UA) (Normal) mg/dL Urine Ketones (Negative) mg/dL Urine Blood (Negative) Urine Nitrite (Negative) Urine Bilirubin (Negative) Urine Urobilinogen (Normal) mg/dL Ur Leukocyte Esterase (Negative) Salicylates < 2.5 L (15.0-30.0) mg/dL Urine Opiates Screen (Itmsnt=310) ng/mL Acetaminophen < 10 L (10-20) mcg/mL Ur Barbiturates Screen (Kvznkb=256) ng/mL Ur Phencyclidine Scrn (Cutoff=25) ng/mL Ur Amphetamines Screen (Dbdlsm=4955) ng/mL U Benzodiazepines Scrn (Tawagq=091) ng/mL Urine Cocaine Screen (Cutoff= 300) ng/mL U Marijuana (THC) Screen (Cutoff = 50) ng/mL Ur Drug Screen Interp Ethyl Alcohol < 10 (Less than 10) mg/dL Critical Care Time Critical Care Time: No
[2018-10-24 12:27] LABS: Bilirubin,Urine Negative (Negative); Blood,Urine Negative (Negative); Clarity,Urine Clear (Clear); Color,Urine Yellow (Yellow); Glucose,Urine (UA) Normal (Normal); Ketones,Urine Negative (Negative); Leukocyte Esterase,Urine Negative (Negative); Nitrite,Urine Negative (Negative); PH,Urine 6.5 pH Units (5.0-8.0); Protein,Urine Negative (Neg-Trace); Specific Gravity,Urine 1.007 (1.010-1.025); Urobilinogen,Urine Normal (Normal)
[2018-10-24 12:29] LABS: Amphetamine Screen,Urine Negative ng/mL (Cutoff=1000); Barbiturate Screen,Urine Negative ng/mL (Cutoff=200); Benzodiazepines Screen,Urine Negative ng/mL (Cutoff=200); Cannabinoid Screen,Urine Negative ng/mL (Cutoff = 50); Cocaine Screen,Urine Negative ng/mL (Cutoff= 300); Opiate Screen,Urine Negative ng/mL (Cutoff=300); Phencyclidine Screen,Urine Negative ng/mL (Cutoff=25)
[2018-10-24 12:53] LABS: Basophils # 0.1 K/mcL (0.0-0.2); Basophils % 1.2 %; Eosinophils # 0.1 K/mcL (0.0-0.6); Eosinophils % 1.1 %; Hematocrit 46.4 % (37.5-50.1); Hemoglobin 15.6 g/dL (12.9-16.9); Immature Granulocytes % 0.4 % (0-4); Lymphocytes # 2.1 K/mcL (0.6-4.6); Lymphocytes % 36.1 %; Mean Corpuscular HGB Conc 33.6 g/dL (31.6-35.5); Mean Corpuscular Hemoglobin 28.7 pg (28.0-33.3); Mean Corpuscular Volume 85.5 fL (83.0-100.0); Mean Platelet Volume 9.2 fL (9.4-12.4); Monocytes # 0.5 K/mcL (0.0-1.3); Monocytes % 9.3 %; Platelet Count 188 K/mcL (140-400); Red Blood Count 5.43 M/mcL (4.19-5.50); Red Cell Distribution Width 14.5 % (11.5-14.5); Segmented Neutrophils % 51.9 %
[2018-10-24 12:57] LABS: Acetaminophen < 10 mcg/mL (10-20); BUN/Creatinine Ratio 17 (6-26); Blood Urea Nitrogen 13 mg/dL (6-20); Carbon Dioxide 25 mEq/L (23-29); Chloride 105 mEq/L (98-107); Ethanol < 10 mg/dL (Less than 10); Glucose 84 mg/dL (70-105); Osmolality,Calculated 281 (280-300); Potassium 4.3 mEq/L (3.5-5.1); Salicylate < 2.5 mg/dL (15.0-30.0); Sodium 136 mEq/L (136-145); eGFR For Non-African Americans > 60 (> 60)
[2018-10-24] MEDS ORDERED: hydrOXYzine pamoate 25 MG CAPSULE PO PRN (16:46)
[2018-10-24] MEDS ORDERED: *HR* LORazepam 2 MG/ML VIAL IM PRN (16:47)
[2018-10-24] MEDS ORDERED: *HR* LORazepam 1 MG TABLET PO PRN (16:47)
[2018-10-24] MEDS ORDERED: Ibuprofen 400 MG TABLET PO PRN (16:47)
[2018-10-24] MEDS ORDERED: Mag Hydrox/Al Hydrox/Simeth 30 ML UDC PO PRN (16:47)
[2018-10-24] MEDS ORDERED: MOM Conc 10 ML UD.LIQ PO PRN (16:47)
[2018-10-24] MEDS ORDERED: Haloperidol Lactate 5 MG/ML VIAL IM PRN (16:47)
[2018-10-24] MEDS: Nicotine 21 MG PATCH.TD24 TD SCH (17:48)
[2018-10-24] MEDS: OLANZapine 5 MG TAB.RAPDIS PO SCH (20:59)
[2018-10-24] MEDS: clonazePAM 1 MG TABLET PO SCH (20:59)
[2018-10-24] MEDS ORDERED: traZODone 50 MG TABLET PO PRN (21:00)
[2018-10-24] MEDS: Mirtazapine 15 MG TABLET PO SCH (21:01)
[2018-10-25] MEDS: clonazePAM 1 MG TABLET PO SCH ×2 (08:30→21:11)
[2018-10-25] MEDS: Nicotine 21 MG PATCH.TD24 TD SCH (08:30)
--- NOTE | 2018-10-25 11:13 | Psychiatry History & Physical ---
Date of Encounter: 10/25/18 Time of Encounter: 11:04 History of Present Illness Patient Stated Chief Complaint: suicidal ideation Medicare Admission Attestation: For traditional Medicare patients the provided hospital inpatient services are reasonable and necessary and in the case of services not specified as inpatient-only under 42 CFR 419.22 (n), that they are appropriately provided as inpatient services in accordance 42 CFR 412.3. For [facility] the patient may reasonably be expected to be discharged or transferred to a hospital within 96 hours after admission to the [facility]. Admitted From: Home Plans for Post Hospital Care: Home History of Present Illness: Mr. Medina is a 33 year old male who was admitted for suicidal ideation. Client was scheduled for court today on two felony drug charges. Client reports he was feeling overwhelmed and did not think he could handle the hearing and presented to the ER instead. Client states he is likely facing probation but that he will have intensive reporting requirements and feels overwhelmed by this. Client states he is currently in AOD treatment that he signed himself up for voluntarily. Had been using heroin and meth. Detoxed at [facility] and is now linked with [facility] for ongoing treatment. States he does group therapy three times a week, individual therapy once a week and peer counseling once a week. Claims he has been sober from opiates for 60 days. Relapsed on meth two weeks ago but nothing since. Tox screen negative. Denies any withdrawal symptoms or cravings. Currently linked with a nurse practitioner who prescribes him multiple mental health medications including Zyprexa, Remeron, Zoloft, Klonopin, and Ambien. Client states he has been on this med regimen for a long time and that he is compliant. Also states he takes the Vivitrol injection and that he was due for a repeat shot today. Client states that he has been eating and sleeping well. Denies SI today but still feels very anxious. Looks visibly anxious. Client reports he is physically healthy. Mother had mental illness and of a heroin overdose which client believes was intentional. Client reports he has one prior suicide attempt himself via hanging. Hospitalized on 1A once before following an overdose which he reports was not intentional. Past Med Surg Social Fam HX - Past Medical History Medical history: no medical history - Past Psychiatric History Psychiatric history: Reports: anxiety, depression, prior suicide attempt, previous psychiatric hospitalization Family psychiatric history: Yes Family Psychiatric History Details: mother-heroin overdose. family-alcoholism Family History of Suicide: Completed Family Suicide History Details: client believes mother's overdose was intentional - Past Surgical History Surgical History: tonsilectomy - Social History Smoking Status: Current every day smoker Smokeless Tobacco Status: No Alcohol use: none Drug use: marijuana, methamphetamine, other Medications & Allergies Mirtazapine [Remeron] 15 mg PO HS #30 tablet 11/24/16 [Rx] Sertraline [Zoloft] 150 mg PO DAILY #45 tablet 11/24/16 [Rx] Zolpidem [Ambien] 10 mg PO HS PRN #0 tablet 11/24/16 [Rx] hydrOXYzine pamoate [HydrOXYzine Pamoate] 25 mg PO TID PRN #90 capsule 11/24/16 [Rx] Atomoxetine HCl [Strattera] 80 mg PO DAILY 10/24/18 [History] OLANZapine [Zyprexa] 15 mg PO HS 10/24/18 [History] clonazePAM [Clonazepam] 1.5 mg PO BID 10/24/18 [History] Allergy/AdvReac Type Severity Reaction Status Date / Time No Known Allergies Allergy Verified 11/18/16 19:58 Review of Systems Constitutional: Denies: fever, chills, weakness, weight change Eyes: Denies: eye pain, vision change Ears, Nose, Throat: Denies: ear pain, throat pain, dental pain, hearing loss, congestion Cardiovascular: Denies: chest pain, palpitations, dyspnea on exertion Respiratory: Denies: cough, dyspnea, wheezes Gastrointestinal: Denies: abdominal pain, nausea, vomiting, diarrhea, constipation Genitourinary male: Denies: urgency, dysuria, frequency, genital lesions Musculoskeletal: Denies: joint swelling, joint pain Integumentary: Denies: rash, lesions, pruritus Neurological: Denies: headache, weakness, numbness, memory loss Endocrine: Denies: fatigue, heat or cold intolerance Hematologic/Lymphatic: Denies: easy bruising, lymphadenopathy Allergic/Immunologic: Denies: urticaria, itchy eyes Exam - HEENT Head exam IM: Present: atraumatic Eye exam IM: Present: EOMI, normal appearance, PERRL ENT exam IM: Present: normal exam - Neurological Neurological exam: Present: CN II-XII intact - Respiratory Respiratory exam IM: Present: CTAB - GI/Abdominal GI/Abdominal exam IM: Present: normal bowel sounds, soft. Absent: tenderness - Extremities Extremities exam IM: Present: full ROM - Skin Skin exam IM: Present: dry, warm - Constitutional Vitals: Temp Pulse Resp BP Pulse Ox 98.3 F 95 16 122/85 98 10/25/18 08:54 10/25/18 08:54 10/25/18 08:54 10/25/18 08:54 10/25/18 08:54 General appearance: age & developmentally appropriate, well-groomed, well- nourished - Musculoskeletal Gait: normal Station: relaxed Strength & Tone: normal for patient - Psychiatric Patient Orientation: Yes Person, Yes Time, Yes Place Level of alertness: Alert Behavior: calm, cooperative Psychomotor activity: Increased Eye Contact: Maintains Eye Contact Mood Description: Anxious Affect description: congruent with mood Speech Volume: Normal Speech pattern: normal rate, normal rhythm, normal tone, fluent, spontaneous Language & Vocabulary: consistent with education Thought Process: Linear Thought Content: Yes Suicidal ideation, No Homicidal ideation, No Overt delusions Perceptual Disturbances: No Auditory hallucinations, No Visual hallucinations Attention Span Ability: Capable of Focused Attention Memory Description: Grossly Intact Patient Reliability: Reliable Historian Fund of knowledge: Yes abstraction ability, Yes average, Yes aware of current events Intelligence Estimate: Average Judgment: Limited Insight: Partial Results - Drug Levels and Toxicology Drug Levels and Toxicology: Drug Levels and Toxicity 10/24/18 10/24/18 12:03 12:21 Urine Opiates Screen Negative Acetaminophen < 10 L Ur Barbiturates Screen Negative Ur Phencyclidine Scrn Negative Ur Amphetamines Screen Negative U Benzodiazepines Scrn Negative Urine Cocaine Screen Negative U Marijuana (THC) Screen Negative Ethyl Alcohol < 10 - Labs Labs: Laboratory Last Values WBC 5.7 K/mcL (4.3-11.1) 10/24/18 12:21 RBC 5.43 M/mcL (4.19-5.50) 10/24/18 12:21 Hgb 15.6 g/dL (12.9-16.9) 10/24/18 12:21 Hct 46.4 % (37.5-50.1) 10/24/18 12:21 MCV 85.5 fL (83.0-100.0) 10/24/18 12:21 MCH 28.7 pg (28.0-33.3) 10/24/18 12:21 MCHC 33.6 g/dL (31.6-35.5) 10/24/18 12:21 RDW 14.5 % (11.5-14.5) 10/24/18 12:21 Plt Count 188 K/mcL (140-400) 10/24/18 12:21 MPV 9.2 fL (9.4-12.4) L 10/24/18 12:21 Immature Gran % 0.4 % (0-4) 10/24/18 12:21 Seg Neutrophils % 51.9 % 10/24/18 12:21 Lymphocytes % 36.1 % 10/24/18 12:21 Monocytes % 9.3 % 10/24/18 12: Eosinophils % 1.1 % 10/24/18 12: Basophils % 1.2 % 10/24/18 12:21 Neutrophils # 3.0 K/mcL (1.6-8.9) 10/24/18 12:21 Lymphocytes # 2.1 K/mcL (0.6-4.6) 10/24/18 12:21 Monocytes # 0.5 K/mcL (0.0-1.3) 10/24/18 12:21 Eosinophils # 0.1 K/mcL (0.0-0.6) 10/24/18 12:21 Basophils # 0.1 K/mcL (0.0-0.2) 10/24/18 12:21 Sodium 136 mEq/L (136-145) 10/24/18 12:21 Potassium 4.3 mEq/L (3.5-5.1) 10/24/18 12:21 Chloride 105 mEq/L (98-107) 10/24/18 12:21 Carbon Dioxide 25 mEq/L (23-29) 10/24/18 12:21 BUN 13 mg/dL (6-20) 10/24/18 12:21 Creatinine 0.77 mg/dL (0.70-1.30) 10/24/18 12:21 Est GFR ( Amer) > 60 (> 60) 10/24/18 12:21 Est GFR (Non-Af Amer) > 60 (> 60) 10/24/18 12:21 BUN/Creatinine Ratio 17 (6-26) 10/24/18 12:21 Glucose 84 mg/dL (70-105) 10/24/18 12:21 Calculated Osmolality 281 (280-300) 10/24/18 12:21 Calcium 9.0 mg/dL (8.6-10.3) 10/24/18 12:21 Urine Color Yellow (Yellow) 10/24/18 12:11 Urine Clarity Clear (Clear) 10/24/18 12:11 Urine pH 6.5 pH Units (5.0-8.0) 10/24/18 12:11 Ur Specific [place] 1.007 (1.010-1.025) L 10/24/18 12:11 Urine Protein Negative mg/dL (Neg-Trace) 10/24/18 12:11 Urine Glucose (UA) Normal mg/dL (Normal) 10/24/18 12:11 Urine Ketones Negative mg/dL (Negative) 10/24/18 12:11 Urine Blood Negative (Negative) 10/24/18 12:11 Urine Nitrite Negative (Negative) 10/24/18 12:11 Urine Bilirubin Negative (Negative) 10/24/18 12:11 Urine Urobilinogen Normal mg/dL (Normal) 10/24/18 12:11 Ur Leukocyte Esterase Negative (Negative) 10/24/18 12:11 Salicylates < 2.5 mg/dL (15.0-30.0) L 10/24/18 12:21 Urine Opiates Screen Negative ng/mL (Evzumo=188) 10/24/18 12:03 Acetaminophen < 10 mcg/mL (10-20) L 10/24/18 12:21 Ur Barbiturates Screen Negative ng/mL (Ddqify=113) 10/24/18 12:03 Ur Phencyclidine Scrn Negative ng/mL (Cutoff=25) 10/24/18 12:03 Ur Amphetamines Screen Negative ng/mL (Lbrhwm=1422) 10/24/18 12:03 U Benzodiazepines Scrn Negative ng/mL (Jgsxyc=678) 10/24/18 12:03 Urine Cocaine Screen Negative ng/mL (Cutoff= 300) 10/24/18 12:03 U Marijuana (THC) Screen Negative ng/mL (Cutoff = 50) 10/24/18 12:03 Ur Drug Screen Interp See Below 10/24/18 12:03 Ethyl Alcohol < 10 mg/dL (Less than 10) 10/24/18 12:21 Assessment and Plan (1) Major depression Current visit: Yes Status: Acute Plan: Admit inpatient for safety and stabilization, Close observation, Suicide Precautions per unit protocol, Encourage participation in unit milieu, Group Therapy, Monitor sleep, Monitor appetite Risks, benefits, side effects, alternatives discussed w/pt: Yes Patient agreeable to treatment: Yes Plans for Post Hospital Care: Home Estimated Length of Stay (Days): 4 Qualifiers: Major depression recurrence: recurrent Active/Remission status: currently active Major depression episode severity: moderate Qualified Code(s): F33.1 - Major depressive disorder, recurrent, moderate (2) Generalized anxiety disorder Current visit: Yes Status: Acute Plan: Admit inpatient for safety and stabilization, Close observation, Suicide Precautions per unit protocol, Encourage participation in unit milieu, Group Therapy, Monitor sleep, Monitor appetite Risks, benefits, side effects, alternatives discussed w/pt: Yes Patient agreeable to treatment: Yes Plans for Post Hospital Care: Home Estimated Length of Stay (Days): 4 (3) Opiate dependence Current visit: Yes Status: Acute Plan: Admit inpatient for safety and stabilization, Close observation, Suicide Precautions per unit protocol, Encourage participation in unit milieu, Group Therapy, Monitor sleep, Monitor appetite Risks, benefits, side effects, alternatives discussed w/pt: Yes Patient agreeable to treatment: Yes Plans for Post Hospital Care: Home Estimated Length of Stay (Days): 4 Qualifiers: Substance use status: uncomplicated Qualified Code(s): F11.20 - Opioid dependence, uncomplicated (4) Amphetamine abuse Current visit: Yes Status: Acute Plan: Admit inpatient for safety and stabilization, Close observation, Suicide Precautions per unit protocol, Encourage participation in unit milieu, Group Therapy, Monitor sleep, Monitor appetite Risks, benefits, side effects, alternatives discussed w/pt: Yes Patient agreeable to treatment: Yes Plans for Post Hospital Care: Home Estimated Length of Stay (Days): 4
[2018-10-25] MEDS: OLANZapine 5 MG TAB.RAPDIS PO SCH (21:10)
[2018-10-25] MEDS: Mirtazapine 15 MG TABLET PO SCH (21:11)
[2018-10-26] MEDS: Nicotine 21 MG PATCH.TD24 TD SCH (08:37)
[2018-10-26] MEDS: clonazePAM 1 MG TABLET PO SCH (08:37)
[2018-10-26 09:06] VITALS: BP 121/88
--- NOTE | 2018-10-26 11:32 | Discharge Summary ---
Addendum entered and electronically signed by Macy Mckinley 10/26/18 11:36: Please also note any additional instructions for discharge: Continue current medications. Follow up with outpatient mental health. Encourage continued therapy in a group or individual setting. The patient was discharged to home. Original Note: Date of Encounter: 10/26/18 Time of Encounter: 09:00 Diagnosis - Discharge Diagnosis (1) Major depress dis, severe Priority: Primary Status: Acute Medications - Discharge Medications Mirtazapine [Remeron] 15 mg PO HS #30 tablet 11/24/16 [Rx] Sertraline [Zoloft] 150 mg PO DAILY #45 tablet 11/24/16 [Rx] Zolpidem [Ambien] 10 mg PO HS PRN #0 tablet 11/24/16 [Rx] hydrOXYzine pamoate [HydrOXYzine Pamoate] 25 mg PO TID PRN #90 capsule 11/24/16 [Rx] Atomoxetine HCl [Strattera] 80 mg PO DAILY 10/24/18 [History] OLANZapine [Zyprexa] 15 mg PO HS 10/24/18 [History] clonazePAM [Clonazepam] 1.5 mg PO BID 10/24/18 [History] Allergy/AdvReac Type Severity Reaction Status Date / Time No Known Allergies Allergy Verified 11/18/16 19:58 Results Procedures and tests throughout hospitalization: Completed Lab Orders Category Date Time Status Acetaminophen Stat Lab 10/24/18 12:21 Completed Basic Metabolic Panel Stat Lab 10/24/18 12:21 Completed Complete Blood Count [HEME] Stat Lab 10/24/18 12:21 Completed Drug Screen, Urine [UCHEM] Stat Lab 10/24/18 12:03 Completed Ethanol Stat Lab 10/24/18 12:21 Completed Salicylate Stat Lab 10/24/18 12:21 Completed Urinalysis reflex Microscopic [URIN] Stat Lab 10/24/18 12:11 Completed - Impressions None noted Provider Date of admission: 10/25/18 11:46 Primary care physician: PCP NONE Discharging clinician: Sonia Carpenter Psychiatry Exam - Constitutional Vitals: Temp Pulse Resp BP Pulse Ox 97.6 F 78 18 121/88 97 10/26/18 09:00 10/26/18 09:00 10/26/18 09:00 10/26/18 09:00 10/26/18 09:00 General appearance: age & developmentally appropriate, well-groomed, well-nouris hed - Musculoskeletal Gait: other (Not assessed) Station: relaxed Strength & Tone: normal for patient (Grossly) - Psychiatric Patient Orientation: Yes Person, Yes Time, Yes Place, Yes Circumstance Level of alertness: Alert, Follows commands Behavior: calm, cooperative Psychomotor activity: Normal Eye Contact: Maintains Eye Contact Mood Description: Euthymic/stable Patient description of mood: "Good" Affect description: congruent with mood, full range Speech Volume: Normal Speech pattern: normal rate, normal rhythm, normal tone, fluent, spontaneous Language & Vocabulary: consistent with education Thought Process: Logical, Linear, Goal Oriented Thought Content: No Suicidal ideation, No Homicidal ideation, No Overt delusions Perceptual Disturbances: No Reacting to internal stimuli, No Auditory hallucinations, No Visual hallucinations Attention Span Ability: Capable of Focused Attention Memory Description: Grossly Intact Patient Reliability: Reliable Historian Fund of knowledge: Yes abstraction ability, Yes aware of current events Intelligence Estimate: Average Judgment: Fair Insight: Full Hospital Course Hospital course: Per history and physical on 10/25/2018: "Mr. Medina is a 33 year old male who was admitted for suicidal ideation. Client was scheduled for court today on two felony drug charges. Client reports he was feeling overwhelmed and did not think he could handle the hearing and presented to the ER instead. Client states he is likely facing probation but that he will have intensive reporting requirements and feels overwhelmed by this. Client states he is currently in AOD treatment that he signed himself up for voluntarily. Had been using heroin and meth. Detoxed at [facility]. States he does group therapy three times a week, individual therapy once a week and peer counseling once a week. Claims he has been sober from opiates for 60 days. Relapsed on meth two weeks ago but nothing since. Tox screen negative. Denies any withdrawal symptoms or cravings. Currently linked with a nurse practitioner who prescribes him multiple mental health medications including Zyprexa, Remeron, Zoloft, Klonopin, and Ambien. Client states he has been on this med regimen for a long time and that he is compliant. Also states he takes the Vivitrol injection and that he was due for a repeat shot today. Client states that he has been eating and sleeping well. Denies SI today but still feels very anxious. Looks visibly anxious. Client reports he is physically healthy. Mother had mental illness and of a heroin overdose which client believes was intentional. Client reports he has one prior suicide attempt himself via hanging. Hospitalized on 1A once before following an overdose which he reports was not intentional." Patient was admitted and given a safe and therapeutic environment. No medication changes were made. Patient's social issues were assisted. Patient's anxiety and mood improved while he was here. He did not need medication changes. Patient did miss shot of the Vivitrol due to being in the hospital. He did receive an appointment for this upon discharge. Patient was educated of his diagnosis and the risk-benefit side effects of this alternative treatment options and was monitored for responsiveness and side effects. Mood anxiety sleep and appetite interest improved as did future orientation. Self-harm thoughts subsided, thinking cleared, and mood stabilized. Patient was able to attend both individual and group therapy sessions as well as meeting with the psychiatrist daily and urged to discuss any medication or treatment issues or other concerns. The patient was educated primarily by verbal means about their diagnosis and manifestations in their life. The option for treatment including group and individual therapy programming was offered to the patient in the use of medications with all their potential risks, benefits, and side effects were discussed with the patient at length. The patient was given the opportunity to ask questions and was noted to participate in the treatment in the planning process. The patient felt ready and eager to be discharged from the inpatient psychiatric unit to continue on with treatment as an outpatient. The patient agreed that is they were safe for this disposition. The patient was considered to be able to participate in informed consent and decision making with respect to medical, legal, and financial issues of the time of discharge. At the time of discharge the patient adamantly denied any concerns for lethality including suicidal or homicidal thoughts or plans and was future oriented toward ongoing mental health care, medical follow-up and sobriety. Time spent discussing smoking cessation with patient: 3 to 10 minutes Does patient wish to continue nicotine replacement upon disc: No - Time Spent with Patient Total time spent providing and/or coordinating discharge services: Greater than 30 minutes Greater than 30 minutes Specific discharge activities: Interval history reviewed. Available labs reviewed . Psychotherapy provided. Patient had an opportunity to ask questions and address concerns. Patient was in agreement with the treatment plan. The risks benefits and side effects of medications were discussed with the patient, including alternatives and treatment. The patient was educated on the abstaining from any alcohol or illicit substances, following up with all scheduled appointments, and taking all medications as prescribed. The patient was educated on 90 meetings in 90 days and to find a sponsor. Assessment and Plan - Patient/Caregiver Discharge Instructions Activity: resume usual activities as tolerated Diet: regular diet - Follow up Plan Follow up with: [facility] Adult Probation Department [Other] (The Adult Probation Department has been notified of your admission per your request. Please contact your special technical operations officer as soon as possible after discharge to check in and follow-up with any legal recommendations. Please take your discharge paperwork with you to your next appointment with your special technical operations officer as verification of your admission. ) [facility] [Outside] (Please continue to follow up with the recommended treatment plan of daily/weekly group and individual counseling sessions. Please keep your current providers up to speed on any changes in your symptoms or situation. Please contact the office at the number above to cancel or reschedule your appointments. ) Janine Lott CNP [Advanced Practice Nurse] - 11/09/18 1:00 pm (You have an appointment scheduled for Friday, November 09, 2018 at 1:00 PM with Janine Lott CNP for medication management. Please contact the office at the above number as soon as possible if you need to reschedule this appointment. ) Functional capacity at discharge: independent ambulation Overall status at discharge: Stable Disposition: Home, Self-Care Quality - Multiple Antipsychotics Patient discharged on 2 or more antipsychotic medications: No - Attending Attestation I examined this patient and my medical decision-making was reviewed with the Resident Physician. I agree with the documented findings, disposition and treatment plan as described except to the extent set forth below. Client reports feeling much better today. Denies SI, intent, or plan. States he has not had suicidal thoughts since being admitted. Thinks he was just overwhelmed with the prospect of going to his court hearing but now feels better able to deal with this. PO was contacted. Client aware his court hearing will likely be rescheduled and that he is to touch base with his PO once discharged. No medication changes were made. Client slept and ate well. Had been living with a friend prior to admission and plans to return to friends house. Friend contacted and can pick client up from the hospital. Client future oriented today. Denying SI/HI/AH/VH. Total time spent with client greater than 30 minutes. Procedures - Procedures Procedures: Medication Management, Crisis Stabilization, Supportive Therapy, Group Therapy, Psychoeducational Therapy
== END 2018-10-26 13:35 | disposition home or self-care (01) | DRG 751 ==
LOC: EMEROOARM 11:21 → INTOOBSV 15:44 → 1ANU 15:44
PROVIDERS: ADMIT Psychiatry & Neurology Psychiatry; ATTEND Psychiatry & Neurology Psychiatry

== ENCOUNTER 2021-04-01 20:22 | Inpatient (IN) ==
[2021-04-01 21:46] LABS: Bilirubin,Urine Negative (Negative); Blood,Urine Negative (Negative); Clarity,Urine Clear (Clear); Color,Urine Yellow (Yellow); Glucose,Urine (UA) Normal (Normal); Ketones,Urine Negative (Negative); Leukocyte Esterase,Urine Negative (Negative); Nitrite,Urine Negative (Negative); PH,Urine 6.5 pH Units (5.0-8.0); Protein,Urine Trace mg/dL (Neg-Trace); Specific Gravity,Urine 1.011 (1.010-1.025); Urobilinogen,Urine Normal (Normal)
[2021-04-01 21:46] LABS: Basophils % 0.2 %; Eosinophils # 0.1 K/mcL (0.0-0.6); Eosinophils % 0.4 %; Hematocrit 46.6 % (37.5-50.1); Hemoglobin 16.8 g/dL (12.9-16.9); Immature Granulocytes % 7.3 % (0-4); Lymphocytes # 1.4 K/mcL (0.6-4.6); Lymphocytes % 10.4 %; Mean Corpuscular HGB Conc 36.1 g/dL (31.6-35.5); Mean Corpuscular Hemoglobin 31.5 pg (28.0-33.3); Mean Corpuscular Volume 87.3 fL (83.0-100.0); Mean Platelet Volume 10.1 fL (9.4-12.4); Monocytes # 1.2 K/mcL (0.0-1.3); Monocytes % 9.3 %; Neutrophils # 9.6 K/mcL (1.6-8.9); Platelet Count 231 K/mcL (140-400); Red Blood Count 5.34 M/mcL (4.19-5.50); Red Cell Distribution Width 12.1 % (11.5-14.5); Segmented Neutrophils % 72.4 %; White Blood Count 13.2 K/mcL (4.3-11.1)
[2021-04-01 21:54] LABS: VBG HCO3 26 mEq/L (21-27); VBG PCO2 44 mmHg (41-51); VBG PH 7.38 pH Units (7.32-7.42); VBG PO2 54 mmHg (25-50)
[2021-04-01 22:05] LABS: Alanine Aminotransferase 43 Units/L (7-52); Albumin 3.8 g/dL (3.5-5.7); Alkaline Phosphatase 76 Units/L (34-104); Aspartate Amino Transferase 65 Units/L (13-39); BUN/Creatinine Ratio 21 (6-26); Bilirubin,Direct 0.5 mg/dL (0.0-0.2); Bilirubin,Indirect 1.2 mg/dL (0.0-1.0); Bilirubin,Total 1.7 mg/dL (0.3-1.0); Blood Urea Nitrogen 15 mg/dL (6-20); Calcium 8.9 mg/dL (8.6-10.3); Carbon Dioxide 25 mEq/L (23-29); Chloride 91 mEq/L (98-107); Glucose 91 mg/dL (70-105); Osmolality,Calculated 272 (280-300); Potassium 2.8 mEq/L (3.5-5.1); Sodium 131 mEq/L (136-145); Total Protein 7.8 g/dL (6.4-8.9); eGFR For African Americans > 60 (> 60); eGFR For Non-African Americans > 60 (> 60)
[2021-04-01 22:14] LABS: Influenza A PCR Negative (Negative); Influenza B PCR Negative (Negative); Resp. Syncytial Virus PCR Negative (Negative)
[2021-04-01 22:19] LABS: Platelet Estimate Normal (Normal)
[2021-04-01 22:54] LABS: SARS-CoV-2 by PCR (In House) Negative (Negative)
[2021-04-01] MEDS ORDERED: Azithromycin 500 MG in 0.9 % Sodium Chloride 250 ML IVPB ONE (23:11)
[2021-04-01] MEDS ORDERED: cefTRIAXone 2,000 MG in Water for inj. (sterile) 20 ML IVP ONE (23:11)
[2021-04-01] MEDS ORDERED: 0.9 % Sodium Chloride 1,000 ML IV ONE (23:13)
[2021-04-01] MEDS ORDERED: Ketorolac 15 MG/ML VIAL IVP ONE (23:14)
[2021-04-01] MEDS ORDERED: Ketorolac 30 MG/ML VIAL IVP ONE (23:28)
[2021-04-02] MEDS ORDERED: Ondansetron 4 MG/2 ML VIAL IVP PRN (00:23)
[2021-04-02] MEDS ORDERED: Melatonin 3 MG TABLET PO PRN (00:23)
[2021-04-02] MEDS ORDERED: Naloxone 0.4 MG/ML INJ IVP PRN (00:23)
[2021-04-02] MEDS: 0.9 % Sodium Chloride 1,000 ML IVC SCH ×2 (02:08→08:57)
[2021-04-02 03:30] LABS: Basophils # 0.1 K/mcL (0.0-0.2); Basophils % 0.8 %; Eosinophils % 0.4 %; Hematocrit 42.3 % (37.5-50.1); Immature Granulocytes % 2.5 % (0-4); Lymphocytes # 1.1 K/mcL (0.6-4.6); Lymphocytes % 9.6 %; Mean Corpuscular HGB Conc 35.9 g/dL (31.6-35.5); Mean Corpuscular Hemoglobin 31.1 pg (28.0-33.3); Mean Corpuscular Volume 86.7 fL (83.0-100.0); Mean Platelet Volume 10.7 fL (9.4-12.4); Monocytes % 8.8 %; Neutrophils # 8.5 K/mcL (1.6-8.9); Platelet Count 164 K/mcL (140-400); Red Blood Count 4.88 M/mcL (4.19-5.50); Red Cell Distribution Width 11.9 % (11.5-14.5); Segmented Neutrophils % 77.9 %; White Blood Count 10.9 K/mcL (4.3-11.1)
[2021-04-02 03:53] LABS: Hemoglobin 15.2 g/dL (12.9-16.9)
[2021-04-02 04:49] LABS: Amphetamine Screen,Urine Negative ng/mL (Cutoff=1000); Barbiturate Screen,Urine Negative ng/mL (Cutoff=200); Benzodiazepines Screen,Urine Positive ng/mL (Cutoff=200); Cannabinoid Screen,Urine Negative ng/mL (Cutoff = 50); Cocaine Screen,Urine Negative ng/mL (Cutoff= 300); Opiate Screen,Urine Negative ng/mL (Cutoff=300); Phencyclidine Screen,Urine Negative ng/mL (Cutoff=25)
[2021-04-02] MEDS: *HR* Heparin 5,000 UNIT/ML VIAL SQ SCH ×2 (05:06→18:04)
[2021-04-02] MEDS: Acetaminophen 325 MG TABLET PO PRN ×2 (05:15→21:41)
[2021-04-02] MEDS: cefTRIAXone 1,000 MG in Water for inj. (sterile) 10 ML IVP SCH (08:54)
[2021-04-02] MEDS: clonazePAM 1 MG TABLET PO SCH ×2 (08:54→21:41)
[2021-04-02 08:57] LABS: Estimated Average Glucose 94 mg/dl; Hemoglobin A1C 4.9 %
[2021-04-02] MEDS ORDERED: 0.9 % Sodium Chloride 1,000 ML IVC ONE (09:10)
[2021-04-02] MEDS ORDERED: Azithromycin 500 MG in 0.9 % Sodium Chloride 250 ML IVPB SCH (10:00)
[2021-04-02 10:05] LABS: Acetaminophen < 10 mcg/mL (10-20); Alanine Aminotransferase 28 Units/L (7-52); Albumin 3.3 g/dL (3.5-5.7); Albumin/Globulin Ratio 1.2 (1.1-2.2); Alkaline Phosphatase 67 Units/L (34-104); Aspartate Amino Transferase 44 Units/L (13-39); BUN/Creatinine Ratio 21 (6-26); Bilirubin,Total 1.2 mg/dL (0.3-1.0); Blood Urea Nitrogen 15 mg/dL (6-20); Calcium 8.1 mg/dL (8.6-10.3); Carbon Dioxide 24 mEq/L (23-29); Chloride 101 mEq/L (98-107); Globulin 2.7 g/dL (2.4-3.5); Glucose 99 mg/dL (70-105); Osmolality,Calculated 275 (280-300); Potassium 3.4 mEq/L (3.5-5.1); Sodium 132 mEq/L (136-145); eGFR For African Americans > 60 (> 60); eGFR For Non-African Americans > 60 (> 60)
[2021-04-02 12:48] LABS: Hepatitis B Surface Antigen Nonreactive (Nonreactive)
[2021-04-02 13:17] LABS: Hepatitis B Core IgM Nonreactive (Nonreactive)
[2021-04-02 13:18] LABS: Hepatitis A Antibody IgM Nonreactive (Nonreactive)
[2021-04-02 15:19] LABS: Hepatitis C Virus Antibody Reactive (Nonreactive)
[2021-04-02 15:35] LABS: BUN/Creatinine Ratio 20 (6-26); Blood Urea Nitrogen 13 mg/dL (6-20); Calcium 7.2 mg/dL (8.6-10.3); Carbon Dioxide 17 mEq/L (23-29); Chloride 103 mEq/L (98-107); Glucose 85 mg/dL (70-105); Osmolality,Calculated 269 (280-300); Sodium 130 mEq/L (136-145); eGFR For African Americans > 60 (> 60); eGFR For Non-African Americans > 60 (> 60)
[2021-04-02 17:59] LABS: Acinetobacter baumannii by PCR Not Detected (Not Detect); Candida albicans by PCR Not Detected (Not Detect); Candida glabrata by PCR Not Detected (Not Detect); Candida krusei by PCR Not Detected (Not Detect); Candida parapsilosis by PCR Not Detected (Not Detect); Candida tropicalis by PCR Not Detected (Not Detect); Enterobacter cloacae Cmplx PCR Not Detected (Not Detect); Enterobacteriaceae by PCR Not Detected (Not Detect); Enterococcus by PCR Not Detected (Not Detect); Escherichia coli by PCR Not Detected (Not Detect); Klebsiella oxytoca by PCR Not Detected (Not Detect); Klebsiella pneumoniae by PCR Not Detected (Not Detect); Proteus by PCR Not Detected (Not Detect); Pseudomonas aeruginosa by PCR Not Detected (Not Detect); Serratia marcescens by PCR Not Detected (Not Detect); Staphylococcus aureus by PCR Not Detected (Not Detect); Staphylococcus by PCR Not Detected (Not Detect); Streptococcus agalactiae(B)PCR Not Detected (Not Detect); Streptococcus pneumoniae PCR DETECTED (Not Detect); Streptococcus pyogenes (A) PCR Not Detected (Not Detect)
[2021-04-02] MEDS: Azithromycin 250 MG TABLET PO SCH (18:04)
[2021-04-02] MEDS: Mirtazapine 15 MG TABLET PO SCH (21:41)
[2021-04-02] MEDS: OLANZapine 5 MG TAB.RAPDIS PO SCH (21:42)
[2021-04-03] MEDS: *HR* Heparin 5,000 UNIT/ML VIAL SQ SCH ×2 (05:49→16:32)
[2021-04-03 06:47] LABS: Hematocrit 42.9 % (37.5-50.1); Hemoglobin 14.3 g/dL (12.9-16.9); Mean Corpuscular HGB Conc 33.3 g/dL (31.6-35.5); Mean Corpuscular Hemoglobin 30.8 pg (28.0-33.3); Mean Corpuscular Volume 92.3 fL (83.0-100.0); Mean Platelet Volume 10.3 fL (9.4-12.4); Platelet Count 186 K/mcL (140-400); Red Blood Count 4.65 M/mcL (4.19-5.50)
[2021-04-03 07:01] LABS: White Blood Count 19.1 K/mcL (4.3-11.1)
[2021-04-03 07:05] LABS: BUN/Creatinine Ratio 16 (6-26); Blood Urea Nitrogen 8 mg/dL (6-20); Calcium 7.7 mg/dL (8.6-10.3); Carbon Dioxide 19 mEq/L (23-29); Chloride 105 mEq/L (98-107); Glucose 61 mg/dL (70-105); Osmolality,Calculated 276 (280-300); Potassium 3.6 mEq/L (3.5-5.1); Sodium 135 mEq/L (136-145); eGFR For African Americans > 60 (> 60); eGFR For Non-African Americans > 60 (> 60)
[2021-04-03 07:52] LABS: Lymphocytes # 2.3 K/mcL (0.6-4.6); Monocytes # 0.8 K/mcL (0.0-1.3)
[2021-04-03 07:53] LABS: Platelet Estimate Normal (Normal)
[2021-04-03] MEDS: clonazePAM 1 MG TABLET PO SCH ×2 (07:55→20:43)
[2021-04-03] MEDS: cefTRIAXone 1,000 MG in Water for inj. (sterile) 10 ML IVP SCH (07:55)
[2021-04-03] MEDS: Azithromycin 250 MG TABLET PO SCH (16:31)
[2021-04-03] MEDS: Acetaminophen 325 MG TABLET PO PRN (16:33)
[2021-04-03] MEDS: Mirtazapine 15 MG TABLET PO SCH (20:43)
[2021-04-03] MEDS: OLANZapine 5 MG TAB.RAPDIS PO SCH (20:44)
[2021-04-04] MEDS: *HR* Heparin 5,000 UNIT/ML VIAL SQ SCH ×2 (06:08→16:24)
[2021-04-04 06:49] LABS: Hematocrit 38.9 % (37.5-50.1); Hemoglobin 13.5 g/dL (12.9-16.9); Mean Corpuscular HGB Conc 34.7 g/dL (31.6-35.5); Mean Corpuscular Hemoglobin 31.3 pg (28.0-33.3); Mean Platelet Volume 9.4 fL (9.4-12.4); Platelet Count 274 K/mcL (140-400); Red Blood Count 4.32 M/mcL (4.19-5.50); Red Cell Distribution Width 12.5 % (11.5-14.5)
[2021-04-04 06:52] LABS: White Blood Count 30.1 K/mcL (4.3-11.1)
[2021-04-04 07:06] LABS: BUN/Creatinine Ratio 11 (6-26); Blood Urea Nitrogen 5 mg/dL (6-20); Calcium 7.9 mg/dL (8.6-10.3); Carbon Dioxide 21 mEq/L (23-29); Chloride 99 mEq/L (98-107); Glucose 79 mg/dL (70-105); Osmolality,Calculated 270 (280-300); Potassium 3.5 mEq/L (3.5-5.1); Sodium 132 mEq/L (136-145); eGFR For African Americans > 60 (> 60); eGFR For Non-African Americans > 60 (> 60)
[2021-04-04 07:24] LABS: Lymphocytes # 2.4 K/mcL (0.6-4.6); Monocytes # 1.8 K/mcL (0.0-1.3); Neutrophils # 25.9 K/mcL (1.6-8.9); Platelet Estimate Normal (Normal)
[2021-04-04] MEDS ORDERED: Isovue-370 500 ML BOTTLE IVP ONE (07:32)
[2021-04-04] MEDS: clonazePAM 1 MG TABLET PO SCH ×2 (08:35→22:35)
[2021-04-04] MEDS: Piperacillin/Tazobactam 3.375 GM in 0.9 % Sodium Chloride Mini Bag 100 ML IVPB SCH ×3 (08:35→23:35)
[2021-04-04] MEDS: Azithromycin 250 MG TABLET PO SCH (16:24)
[2021-04-04] MEDS: OLANZapine 5 MG TAB.RAPDIS PO SCH (22:35)
[2021-04-04] MEDS: Mirtazapine 15 MG TABLET PO SCH (22:35)
[2021-04-05 02:45] LABS: Hematocrit 38.1 % (37.5-50.1); Hemoglobin 12.8 g/dL (12.9-16.9); Mean Corpuscular HGB Conc 33.6 g/dL (31.6-35.5); Mean Corpuscular Hemoglobin 31.2 pg (28.0-33.3); Mean Corpuscular Volume 92.9 fL (83.0-100.0); Mean Platelet Volume 9.3 fL (9.4-12.4); Platelet Count 278 K/mcL (140-400); Red Cell Distribution Width 12.8 % (11.5-14.5); White Blood Count 24.2 K/mcL (4.3-11.1)
[2021-04-05 02:53] LABS: INR 1.2; Prothrombin Time 13.3 Seconds (9.4-12.1)
[2021-04-05 02:59] LABS: BUN/Creatinine Ratio 10 (6-26); Blood Urea Nitrogen 4 mg/dL (6-20); Calcium 7.7 mg/dL (8.6-10.3); Carbon Dioxide 21 mEq/L (23-29); Chloride 101 mEq/L (98-107); Glucose 89 mg/dL (70-105); Osmolality,Calculated 272 (280-300); Sodium 133 mEq/L (136-145); eGFR For African Americans > 60 (> 60); eGFR For Non-African Americans > 60 (> 60)
[2021-04-05 03:24] LABS: Basophils # 0.5 K/mcL (0.0-0.2); Lymphocytes # 1.9 K/mcL (0.6-4.6); Neutrophils # 19.8 K/mcL (1.6-8.9); Platelet Estimate Normal (Normal)
[2021-04-05] MEDS: *HR* Heparin 5,000 UNIT/ML VIAL SQ SCH ×2 (05:49→17:02)
[2021-04-05] MEDS: clonazePAM 1 MG TABLET PO SCH ×2 (07:48→21:24)
[2021-04-05] MEDS: Piperacillin/Tazobactam 3.375 GM in 0.9 % Sodium Chloride Mini Bag 100 ML IVPB SCH ×3 (07:51→22:45)
[2021-04-05] MEDS: 0.9 % Sodium Chloride 1,000 ML IVC SCH ×2 (14:57→22:43)
[2021-04-05] MEDS: Ipratropium/Albuterol Neb 3 ML IH SCH ×3 (15:49→23:51)
[2021-04-05] MEDS: Azithromycin 250 MG TABLET PO SCH (17:02)
[2021-04-05] MEDS: OLANZapine 5 MG TAB.RAPDIS PO SCH (21:24)
[2021-04-05] MEDS: Mirtazapine 15 MG TABLET PO SCH (21:24)
[2021-04-05 22:32] LABS: Lactate Dehydrogenase 262 Units/L (140-271); Total Protein 5.6 g/dL (6.4-8.9)
[2021-04-06] MEDS: Ipratropium/Albuterol Neb 3 ML IH SCH ×2 (04:21→07:43)
[2021-04-06] MEDS: *HR* Heparin 5,000 UNIT/ML VIAL SQ SCH ×2 (06:04→18:41)
[2021-04-06 07:42] LABS: Hematocrit 33.2 % (37.5-50.1); Mean Corpuscular HGB Conc 32.8 g/dL (31.6-35.5); Mean Corpuscular Hemoglobin 30.8 pg (28.0-33.3); Mean Corpuscular Volume 93.8 fL (83.0-100.0); Mean Platelet Volume 9.3 fL (9.4-12.4); Platelet Count 360 K/mcL (140-400); Red Blood Count 3.54 M/mcL (4.19-5.50); Red Cell Distribution Width 12.7 % (11.5-14.5); White Blood Count 22.1 K/mcL (4.3-11.1)
[2021-04-06 07:55] LABS: Hemoglobin 10.9 g/dL (12.9-16.9)
[2021-04-06 07:57] LABS: INR 1.2; Prothrombin Time 13.7 Seconds (9.4-12.1)
[2021-04-06 07:58] LABS: Alanine Aminotransferase 15 Units/L (7-52); Albumin 2.6 g/dL (3.5-5.7); Alkaline Phosphatase 82 Units/L (34-104); Aspartate Amino Transferase 24 Units/L (13-39); BUN/Creatinine Ratio 8 (6-26); Bilirubin,Total 0.5 mg/dL (0.3-1.0); Blood Urea Nitrogen 3 mg/dL (6-20); Calcium 7.7 mg/dL (8.6-10.3); Carbon Dioxide 23 mEq/L (23-29); Chloride 99 mEq/L (98-107); Globulin 2.7 g/dL (2.4-3.5); Glucose 95 mg/dL (70-105); Magnesium 1.7 mg/dL (1.6-2.6); Osmolality,Calculated 272 (280-300); Phosphorous 2.1 mg/dL (2.7-4.5); Sodium 133 mEq/L (136-145); Total Protein 5.3 g/dL (6.4-8.9); eGFR For African Americans > 60 (> 60); eGFR For Non-African Americans > 60 (> 60)
[2021-04-06] MEDS: Piperacillin/Tazobactam 3.375 GM in 0.9 % Sodium Chloride Mini Bag 100 ML IVPB SCH ×2 (09:12→16:38)
[2021-04-06] MEDS: clonazePAM 1 MG TABLET PO SCH ×2 (09:14→21:56)
[2021-04-06] MEDS ORDERED: Ipratropium/Albuterol Neb 3 ML IH PRN (11:19)
[2021-04-06] MEDS: 0.9 % Sodium Chloride 1,000 ML IVC SCH (14:10)
[2021-04-06] MEDS: Ipratropium/Albuterol Neb 3 ML IH PRN ×2 (16:35→22:34)
[2021-04-06 16:44] LABS: Glucose,Pleural Fluid < 10 mg/dL (No Ref Range); LDH,Pleural Fluid > 1200 Units/L (No Ref Range); Total Protein,Pleural Fluid 3.8 g/dL
[2021-04-06 17:04] LABS: Appearance of Pleural Fl Bloody (Clear)
[2021-04-06 17:57] LABS: Basophils,Pleural Fluid 0 %; Eosinophils,Pleural Fluid 0 %; Lymphocytes,Pleural Fluid 0 %; Monocytes,Pleural Fluid 0 %
[2021-04-06] MEDS: Azithromycin 250 MG TABLET PO SCH (18:41)
[2021-04-06] MEDS: Mirtazapine 15 MG TABLET PO SCH (21:55)
[2021-04-06] MEDS: OLANZapine 5 MG TAB.RAPDIS PO SCH (21:55)
[2021-04-07] MEDS: Piperacillin/Tazobactam 3.375 GM in 0.9 % Sodium Chloride Mini Bag 100 ML IVPB SCH ×4 (00:18→23:41)
[2021-04-07 03:54] LABS: Hematocrit 33.2 % (37.5-50.1); Mean Corpuscular HGB Conc 33.1 g/dL (31.6-35.5); Mean Corpuscular Hemoglobin 31.1 pg (28.0-33.3); Mean Corpuscular Volume 93.8 fL (83.0-100.0); Mean Platelet Volume 9.4 fL (9.4-12.4); Platelet Count 382 K/mcL (140-400); Red Blood Count 3.54 M/mcL (4.19-5.50); Red Cell Distribution Width 12.7 % (11.5-14.5); White Blood Count 17.9 K/mcL (4.3-11.1)
[2021-04-07 04:07] LABS: Alanine Aminotransferase 13 Units/L (7-52); Albumin 2.7 g/dL (3.5-5.7); Albumin/Globulin Ratio 0.9 (1.1-2.2); Alkaline Phosphatase 80 Units/L (34-104); Aspartate Amino Transferase 24 Units/L (13-39); BUN/Creatinine Ratio 5 (6-26); Bilirubin,Total 0.5 mg/dL (0.3-1.0); Blood Urea Nitrogen 2 mg/dL (6-20); Calcium 7.9 mg/dL (8.6-10.3); Carbon Dioxide 24 mEq/L (23-29); Chloride 100 mEq/L (98-107); Globulin 3.1 g/dL (2.4-3.5); Glucose 90 mg/dL (70-105); Magnesium 1.6 mg/dL (1.6-2.6); Osmolality,Calculated 272 (280-300); Phosphorous 3.2 mg/dL (2.7-4.5); Potassium 3.9 mEq/L (3.5-5.1); Sodium 133 mEq/L (136-145); Total Protein 5.8 g/dL (6.4-8.9); eGFR For African Americans > 60 (> 60); eGFR For Non-African Americans > 60 (> 60)
[2021-04-07] MEDS: *HR* Heparin 5,000 UNIT/ML VIAL SQ SCH ×2 (05:09→16:45)
[2021-04-07] MEDS: 0.9 % Sodium Chloride 1,000 ML IVC SCH (07:11)
[2021-04-07] MEDS: clonazePAM 1 MG TABLET PO SCH ×2 (07:29→20:23)
[2021-04-07 11:17] LABS: C-Reactive Protein 240 mg/L (Less than 10)
[2021-04-07] MEDS: predniSONE 20 MG TABLET PO SCH (12:15)
[2021-04-07] MEDS: Mirtazapine 15 MG TABLET PO SCH (20:24)
[2021-04-07] MEDS: OLANZapine 5 MG TAB.RAPDIS PO SCH (20:24)
[2021-04-08 01:48] LABS: Hematocrit 36.9 % (37.5-50.1); Hemoglobin 11.9 g/dL (12.9-16.9); Mean Corpuscular HGB Conc 32.2 g/dL (31.6-35.5); Mean Corpuscular Hemoglobin 30.8 pg (28.0-33.3); Mean Corpuscular Volume 95.6 fL (83.0-100.0); Mean Platelet Volume 9.9 fL (9.4-12.4); Platelet Count 414 K/mcL (140-400); Red Blood Count 3.86 M/mcL (4.19-5.50); Red Cell Distribution Width 12.7 % (11.5-14.5); White Blood Count 17.7 K/mcL (4.3-11.1)
[2021-04-08 02:06] LABS: Alanine Aminotransferase 12 Units/L (7-52); Albumin 2.9 g/dL (3.5-5.7); Albumin/Globulin Ratio 0.8 (1.1-2.2); Alkaline Phosphatase 83 Units/L (34-104); Aspartate Amino Transferase 21 Units/L (13-39); BUN/Creatinine Ratio 13 (6-26); Bilirubin,Total 0.4 mg/dL (0.3-1.0); Blood Urea Nitrogen 6 mg/dL (6-20); Calcium 8.3 mg/dL (8.6-10.3); Carbon Dioxide 26 mEq/L (23-29); Chloride 99 mEq/L (98-107); Globulin 3.6 g/dL (2.4-3.5); Glucose 110 mg/dL (70-105); Magnesium 1.9 mg/dL (1.6-2.6); Osmolality,Calculated 274 (280-300); Phosphorous 3.1 mg/dL (2.7-4.5); Potassium 4.4 mEq/L (3.5-5.1); Sodium 133 mEq/L (136-145); Total Protein 6.5 g/dL (6.4-8.9); eGFR For African Americans > 60 (> 60); eGFR For Non-African Americans > 60 (> 60)
[2021-04-08] MEDS: *HR* Heparin 5,000 UNIT/ML VIAL SQ SCH (05:04)
[2021-04-08] MEDS: clonazePAM 1 MG TABLET PO SCH (09:36)
[2021-04-08] MEDS: Piperacillin/Tazobactam 3.375 GM in 0.9 % Sodium Chloride Mini Bag 100 ML IVPB SCH ×2 (09:36→16:26)
[2021-04-08] MEDS: predniSONE 20 MG TABLET PO SCH (09:36)
[2021-04-08 11:23] VITALS: BP 105/68; PULSE 99; TEMP 98.1; O2SAT 93
[2021-04-08] MEDS ORDERED: FLU Vac QV 21-22 (6Month+)/PF 0.5 ML SYRINGE IM ONE (15:56)
[2021-04-08 23:38] LABS: Fluid Source for Triglycerides PLEURAL FLUID
[2021-04-09 08:15] LABS: Fluid Source for Cholesterol PLEURAL FLUID
[2021-04-09] MEDS ORDERED: Topiramate 25 MG TABLET PO SCH (09:00)
[2021-04-09 11:16] LABS: Triglycerides,Body Fluid 212 mg/dL
[2021-04-09 11:22] LABS: Cholesterol,Body Fluid 77 mg/dL
== END 2021-04-08 16:49 | disposition home or self-care (01) | DRG 720 ==
LOC: EMEROOARM 20:22 → 2ANU 20:22 → SUATTDRO 04-02 00:11 → 2ANU 04-02 01:00 → SUATTDRO 04-03 19:47
PROVIDERS: ADMIT Family Medicine; ATTEND Internal Medicine